=== PATIENT | female | born 1945 | race Caucasian/White ===

== ENCOUNTER 2016-03-27 12:09 | Outpatient (RCR) | payer MEDICARE, OTHER ==
[~2016-03-27 12:09] MED LIST: AMLO10TA82 PO; CHOL10002; E400C; ESTRADIOL; EZET1TAB21; FENO135C PO; FURO20TA4 PO; HCT25T; HYDR-2997 PO; KCL10CCR; LEVO125T6 PO; LISI20TA PO; LNS30CCR PO; LVT.1T; MONT10TA24 PO; NF-SITA50T PO; POTASSIUM CHLORIDE PO; SERT50TA PO; SERT50TA2
--- OUTSIDE RECORDS SUMMARY | 2016-03-27 12:13 | XMS REPORT | Continuity of Care Document ---
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 If you do not see the information that you expected, contact Release of Information in the Health Information Management department at [phone] for further assistance in locating additional records.[facility] Active Allergies and Adverse Reactions Allergen Noted Date Severity Reactions Comments Albuterol 12/25/2004 Allergy recorded in SMS: ALBUTEROL~Reactions: HIVES, Allergy recorded in SMS: PROVENTIL~Reactions: HIVES, Allergy recorded in SMS: VENTOLIN~Reactions: HIVES Current Medications Prescription Sig. Disp. Refills Start End Date Status Date Fenofibric Acid Take 135 mg by mouth Active (TRILIPIX) 135 mg PO CpDR daily. sertraline (ZOLOFT) 50 mg Take 50 mg by mouth Active PO tablet daily. sitaGLIPtin (JANUVIA) 50 Take 50 mg by mouth Active mg PO Tab daily. potassium chloride Take 20 mEq by mouth Active (KLOR-CON) 20 mEq PO daily. packet furosemide (LASIX) 20 mg Take 20 mg by mouth Active PO tablet daily. montelukast (SINGULAIR) Take 10 mg by mouth at Active 10 mg PO tablet bedtime daily. lansoprazole DR Take 30 mg by mouth Active (PREVACID) 30 mg PO daily. capsule ibuprofen (MOTRIN) 200 mg Take 200 mg by mouth as Active tablet Needed. Cholecalciferol (Vitamin Take by mouth. Active D3) (VITAMIN D) 1,000 unit cap CALCIUM PO Take 600 mg by mouth. Active levothyroxine (SYNTHROID) Take 25 mcg by mouth Active 25 mcg tablet daily 30 minutes before breakfast. Active Problems Problem Noted Date Tinnitus 01/17/2012 Thyroid cancer, medullary carcinoma (HCC) 01/11/2011 Personal history of irradiation 01/11/2011 Most Recent Encounters Date Type Specialty Providers Description 02/01/2016 Orders Only Otolaryngology Fabi Klein MD Personal history of irradiation (Primary Dx) 01/04/2016 Office Visit Otolaryngology Fabi Klein MD Personal history of irradiation (Primary Dx); Oropharyngeal dysphagia 01/04/2016 Clinical Otolaryngology Ling Serra, Oropharyngeal dysphagia Support VIDA,TED-CURRICULUM SPECIALIST (Primary Dx) 01/04/2016 Hospital Radiology Elliot Rene MD Encounter Social History Tobacco Use Types Packs/Day Years Used Date Never Smoker Smokeless Tobacco: Never Used Alcohol Use Drinks/Week oz/Week Comments No Last Filed Vital Signs Vital Sign Reading Time Taken Blood Pressure 134/60 01/04/2016 12:47 PM CDT Pulse 72 01/04/2016 12:47 PM CDT Temperature - - Respiratory Rate - - Height 1.651 m (5' 5") 01/04/2016 12:47 PM CDT Weight 72.031 kg (158 lb 12.8 01/04/2016 12:47 PM CDT oz) Body Mass Index 26.43 01/04/2016 12:47 PM CDT Oxygen Saturation - - Plan of Care Date Type Specialty Providers Description 05/10/2016 Appointment Otolaryngology Fabi Klein MD [address] [place] [address] [phone] (Fax) 05/10/2016 Appointment Otolaryngology Elliot Rene MD [address] [place] [address] [phone] (Fax) Health Maintenance Due Date Last Done Comments Physical (Comprehensive) 1950 Exam Pertussis Vaccine 1954 Tetanus Vaccine 1960 Breast Cancer Screening 1983 Colorectal Cancer 1993 Screening Shingles Vaccine 2003 Osteoporosis Screening 2008 Prevnar/Pneumovax (#1) 2008 Influenza Vaccine 12/29/2015 Results from Last 3 Months SWALLOW MOTION SERIES (01/04/2016 11:28 AM) Impressions 1. Mild laryngeal penetration with thin barium. 2. Mild oropharyngeal dysphagia. 3. Please see separately dictated report from the Department of Speech Pathology for further description. Approved by Geri Webster M.D. on 01/04/2016 3:41 PM By my electronic signature, I attest that I have personally reviewed the images for this examination and formulated the interpretations and opinions expressed in this report Finalized by Alex Tena M.D. on 01/04/2016 4:10 PM. Dictated by Geri Webster M.D. on 01/04/2016 11:50 AM. Narrative SWALLOW MOTION SERIES CLINICAL HISTORY: 70-year-old female, dysphagia, thyroid cancer, medullary carcinoma, personal history of radiation, medullary thyroid carcinoma TECHNIQUE: The procedure was performed in conjunction with members of the department of speech pathology. Video fluoroscopy was performed during swallowing of various consistencies of barium. The patient tolerated the procedure well and left the department in stable condition. TOTAL FLUOROSCOPY TIME: 186 seconds FINDINGS: Mild penetration was seen during swallow with thin barium. Spontaneous cough was absent. Procedure Note Interface, Radiant Results - SatJan 04, 2016 4:13 PM CDT SWALLOW MOTION SERIES CLINICAL HISTORY: 70-year-old female, dysphagia, thyroid cancer, medullary carcinoma, personal history of radiation, medullary thyroid carcinoma TECHNIQUE: The procedure was performed in conjunction with members of the department of speech pathology. Video fluoroscopy was performed during swallowing of various consistencies of barium. The patient tolerated the procedure well and left the department in stable condition. TOTAL FLUOROSCOPY TIME: 186 seconds FINDINGS: Mild penetration was seen during swallow with thin barium. Spontaneous cough was absent. IMPRESSION 1. Mild laryngeal penetration with thin barium. 2. Mild oropharyngeal dysphagia. 3. Please see separately dictated report from the Department of Speech Pathology for further description. Approved by Geri Webster M.D. on 01/04/2016 3:41 PM By my electronic signature, I attest that I have personally reviewed the images for this examination and formulated the interpretations and opinions expressed in this report Finalized by Alex Tena M.D. on 01/04/2016 4:10 PM. Dictated by Geri Webster M.D. on 01/04/2016 11:50 AM.
== END 2016-06-25 | disposition home or self-care (01) ==
LOC: ONC 12:09
PROVIDERS: ATTEND Internal Medicine Hematology & Oncology
DX: C73 Malignant neoplasm of thyroid gland (principal); E03.9 Hypothyroidism, unspecified; R13.10 Dysphagia, unspecified; Z92.3 Personal history of irradiation; Z79.899 Other long term (current) drug therapy
CPT/HCPCS: 36415; 84443

== ENCOUNTER 2016-09-13 10:35 | Outpatient (RCR) | payer MEDICARE, OTHER ==
[2016-08-09 13:21] LABS: BASOPHILS # (AUTO) 0.1 10^3/uL (0.0-0.1); BASOPHILS % (AUTO) 1 % (0-10); EOSINOPHILS # (AUTO) 0.1 10^3/uL (0.0-0.3); EOSINOPHILS % (AUTO) 2 % (0-10); LYMPHOCYTES % (AUTO) 19 % (12-44); MEAN CORPUSCULAR HEMOGLOBIN 28 PG (25-34); MEAN CORPUSCULAR HGB CONC 33 G/DL (32-36); MEAN CORPUSCULAR VOLUME 86 FL (80-99); MEAN PLATELET VOLUME 8.8 FL (7.4-10.4); MONOCYTES # (AUTO) 0.5 X 10^3 (0.0-1.0); MONOCYTES % (AUTO) 10 % (0-12); NEUTROPHILS # (AUTO) 3.5 X 10^3 (1.8-7.8); NEUTROPHILS % (AUTO) 67 % (42-75); PLATELET COUNT 290 10^3/uL (130-400); WHITE BLOOD COUNT 5.1 10^3/uL (4.3-11.0)
[2016-08-09 13:56] LABS: BILIRUBIN,TOTAL 0.7 MG/DL (0.1-1.0); CALCIUM 9.5 MG/DL (8.5-10.1); CREATININE SERUM 1.13 MG/DL (0.60-1.30); POTASSIUM 4.7 MMOL/L (3.6-5.0); TOTAL PROTEIN 6.9 G/DL (6.4-8.2)
[2016-08-09 14:20] LABS: THYROID STIMULATING HORMONE 40.16 UIU/ML (0.35-4.94)
[2016-10-20] MEDS ORDERED: AMLO5TAB4 PO (17:37)
[2016-10-20] MEDS ORDERED: HYDR-3812 PO (17:37)
== END 2016-11-07 | disposition home or self-care (01) ==
LOC: ONC 10:35
PROVIDERS: ATTEND Internal Medicine Hematology & Oncology
DX: C73 Malignant neoplasm of thyroid gland (principal); R97.0 Elevated carcinoembryonic antigen [CEA]; E03.9 Hypothyroidism, unspecified; R13.10 Dysphagia, unspecified; Z92.3 Personal history of irradiation; Z79.899 Other long term (current) drug therapy
CPT/HCPCS: 36415; 80053; 82308; 82378; 84443; 85025; 99213

== ENCOUNTER 2016-10-20 15:08 | Emergency (ER) | payer MEDICARE, OTHER ==
[~2016-10-20] VITALS: Ht 170.2 cm; Wt 74.9 kg
[2016-10-20 15:35] LABS: MEAN PLATELET VOLUME 9.1 FL (7.4-10.4); RED BLOOD COUNT 5.44 10^6/uL (4.35-5.85); RED CELL DISTRIBUTION WIDTH 13.7 % (10.0-14.5); WHITE BLOOD COUNT 6.3 10^3/uL (4.3-11.0)
[2016-10-20 15:52] LABS: ALANINE AMINOTRANSFERASE 16 U/L (0-55); ALBUMIN 4.3 GM/DL (3.2-4.5); ANION GAP 10 MMOL/L (5-14); ASPARTATE AMINO TRANSFERASE 25 U/L (5-34); BILIRUBIN,DIRECT 0.3 MG/DL (0.0-0.3); BILIRUBIN,INDIRECT 0.7 MG/DL; BLOOD UREA NITROGEN 13 MG/DL (7-18); BUN/CREATININE RATIO 14 (0-20); CALCIUM 9.5 MG/DL (8.5-10.1); CARBON DIOXIDE 24 MMOL/L (21-32); CHLORIDE 107 MMOL/L (98-107); CREATININE SERUM 0.92 MG/DL (0.60-1.30); GFR ESTIMATED 60; GLUCOSE 135 MG/DL (70-105); HEMOLYSIS 9 (-100-29); ICTERUS 1.1 (-100-1.9); LIPEMIA 8 (-100-49); POTASSIUM 3.9 MMOL/L (3.6-5.0); SODIUM 141 MMOL/L (135-145); TOTAL PROTEIN 7.8 GM/DL (6.4-8.2)
[2016-10-20] MEDS ORDERED: NS 100 ML (IVPB) BAG IV ONE (16:00)
[2016-10-20] MEDS ORDERED: IOHEXOL 350 MG/ML 100 ML (OMNIPAQUE 350) VIAL IV ONE (16:00)
[2016-10-20 16:07] LABS: ALCOHOL < 10 MG/DL (<10)
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
[2016-10-20] MEDS ORDERED: KETOROLAC 30 MG/ML VIAL IVP ONE (16:45)
[2016-10-20] MEDS ORDERED: fentaNYL INJECTION 100 MCG/2 ML AMP IVP ONE (16:45)
[2016-10-20 16:53] LABS: BILIRUBIN,URINE NEGATIVE (NEGATIVE); KETONES,URINE NEGATIVE (NEGATIVE); LEUKOCYTE ESTERASE ,URINE NEGATIVE (NEGATIVE); NITRITE,URINE NEGATIVE (NEGATIVE); PH,URINE 7 (5-9); PROTEIN,URINE NEGATIVE (NEGATIVE); UROBILINOGEN,URINE NORMAL (NORMAL)
[2016-10-20 16:59] LABS: SQUAMOUS EPITHELIAL CELL,UR 0-2 /HPF
[2016-10-20 17:21] LABS: THYROID STIMULATING HORMONE 14.14 UIU/ML (0.35-4.94)
[2016-10-20] MEDS ORDERED: AMLO5TAB4 PO (17:37)
[2016-10-20] MEDS ORDERED: HYDR-3812 PO (17:37)
[2016-10-20] MEDS ORDERED: ONDANSETRON 4 MG/2 ML (SDV) Z0FRAN IVP ONE (17:45)
[2016-10-20] MEDS ORDERED: amLODIPine 5 MG (NORVASC) TAB PO ONE (17:45)
[2016-10-20 18:25] VITALS: BP 168/100
--- OUTSIDE RECORDS SUMMARY | 2016-10-22 17:12 | XMS REPORT | Continuity of Care Document ---
Author Author [facility] Organization [facility] Address Unknown Phone Unavailable Care Team Providers Care Convenience Store Manager Name Role Phone Carlos Cervantes III PCP [phone] Source Comments Some departments are not documenting in the electronic medical record. If you do not see the information that you expected, contact Release of Information in the Health Information Management department at [phone] for further assistance in locating additional records.[facility] Active Allergies and Adverse Reactions Allergen Noted [...] (HCC) 01/11/2011 Personal history of irradiation 01/11/2011 Social History Tobacco Use Types Packs/Day Years [...] Oxygen Saturation - - Plan of Care Health Maintenance Due Date Last Done Comments Physical (Comprehensive) 1950 Exam Pertussis Vaccine 1954 Tetanus Vaccine 1960 Breast Cancer Screening 1983 Colorectal Cancer 1993 Screening Shingles Vaccine 2003 Osteoporosis Screening 2008 Prevnar/Pneumovax (#1) 2008 Influenza Vaccine 12/28/2016 Results from Last 3 Months Not on file
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
== END 2016-10-20 18:25 | disposition home or self-care (01) ==
LOC: EDUNIT# 15:08 → ER 15:11
DX: S20.212A Contusion of left front wall of thorax, initial encounter (principal); S89.92XA Unspecified injury of left lower leg, initial encounter; S49.92XA Unspecified injury of left shoulder and upper arm, initial encounter; I16.0 Hypertensive urgency; E89.0 Postprocedural hypothyroidism; M50.30 Other cervical disc degeneration, unspecified cervical region; M48.02 Spinal stenosis, cervical region; Z85.850 Personal history of malignant neoplasm of thyroid; Z92.3 Personal history of irradiation; W22.11XA Striking against or struck by driver side automobile airbag, initial encounter; V43.52XA Car driver injured in collision with other type car in traffic accident, initial encounter; Y92.009 Unspecified place in unspecified non-institutional (private) residence as the place of occurrence of the external cause; Y99.8 Other external cause status
CPT/HCPCS: 36415; 70450; 71260; 72125; 74177; 80048; 80076; 80320; 81000; 84439; 84443; 85027; 93041

== ENCOUNTER 2017-01-23 10:12 | Outpatient (RCR) | payer MEDICARE, OTHER ==
[2016-11-08 13:12] LABS: BASOPHILS # (AUTO) 0.1 10^3/uL (0.0-0.1); BASOPHILS % (AUTO) 1 % (0-10); EOSINOPHILS # (AUTO) 0.1 10^3/uL (0.0-0.3); EOSINOPHILS % (AUTO) 3 % (0-10); LYMPHOCYTES # (AUTO) 0.9 X 10^3 (1.0-4.0); LYMPHOCYTES % (AUTO) 18 % (12-44); MEAN CORPUSCULAR HEMOGLOBIN 28 PG (25-34); MEAN CORPUSCULAR HGB CONC 33 G/DL (32-36); MEAN CORPUSCULAR VOLUME 86 FL (80-99); MONOCYTES # (AUTO) 0.5 X 10^3 (0.0-1.0); MONOCYTES % (AUTO) 11 % (0-12); NEUTROPHILS # (AUTO) 3.3 X 10^3 (1.8-7.8); NEUTROPHILS % (AUTO) 68 % (42-75); PLATELET COUNT 305 10^3/uL (130-400); RED BLOOD COUNT 5.27 10^6/uL (4.35-5.85); RED CELL DISTRIBUTION WIDTH 13.7 % (10.0-14.5); WHITE BLOOD COUNT 4.8 10^3/uL (4.3-11.0)
[2016-11-08 13:56] LABS: ALANINE AMINOTRANSFERASE 15 U/L (0-55); ANION GAP 10 MMOL/L (5-14); ASPARTATE AMINO TRANSFERASE 18 U/L (5-34); BILIRUBIN,TOTAL 0.6 MG/DL (0.1-1.0); BLOOD UREA NITROGEN 11 MG/DL (7-18); BUN/CREATININE RATIO 13; CALCIUM 9.3 MG/DL (8.5-10.1); CARBON DIOXIDE 26 MMOL/L (21-32); CHLORIDE 105 MMOL/L (98-107); CREATININE SERUM 0.84 MG/DL (0.60-1.30); GFR ESTIMATED > 60; GLUCOSE 111 MG/DL (70-105); POTASSIUM 4.3 MMOL/L (3.6-5.0); SODIUM 141 MMOL/L (135-145); TOTAL PROTEIN 7.2 GM/DL (6.4-8.2)
[2016-11-08 14:16] LABS: THYROID STIMULATING HORMONE 9.96 UIU/ML (0.35-4.94)
[~2017-01-23 10:12] MED LIST changes: +AMLO5TAB4 PO; +HYDR-3812 PO
== END 2017-01-26 | disposition home or self-care (01) ==
LOC: ONC 10:12
PROVIDERS: ATTEND Internal Medicine Hematology & Oncology
DX: C73 Malignant neoplasm of thyroid gland (principal); R97.0 Elevated carcinoembryonic antigen [CEA]; E03.9 Hypothyroidism, unspecified; R13.10 Dysphagia, unspecified; Z92.3 Personal history of irradiation; Z79.899 Other long term (current) drug therapy
CPT/HCPCS: 36415; 80053; 82308; 82378; 84443; 85025; 99213

== ENCOUNTER 2017-01-25 10:06 | Outpatient (RCR) | payer MEDICARE, OTHER | END 2017-01-26 | disposition home or self-care (01) | PROVIDERS: ATTEND Internal Medicine | DX: S23.3XXD Sprain of ligaments of thoracic spine, subsequent encounter (principal); V87.7XXD Person injured in collision between other specified motor vehicles (traffic), subsequent encounter ==

== ENCOUNTER 2017-01-31 10:42 | Outpatient (RCR) | payer MEDICARE, OTHER | END 2017-01-31 11:25 | disposition home or self-care (01) | PROVIDERS: ATTEND Internal Medicine | DX: S23.3XXD Sprain of ligaments of thoracic spine, subsequent encounter (principal); V87.7XXD Person injured in collision between other specified motor vehicles (traffic), subsequent encounter ==

== ENCOUNTER → 2017-03-06 | Outpatient (CLI) | payer MEDICARE, OTHER | LOC: WOUNDCARE 13:13 | PROVIDERS: ATTEND Surgery | DX: M27.2 Inflammatory conditions of jaws (principal); C73 Malignant neoplasm of thyroid gland; M86.8X8 Other osteomyelitis, other site; Z92.3 Personal history of irradiation | CPT/HCPCS: 99213 ==

== ENCOUNTER → 2017-03-11 | Outpatient (CLI) | payer MEDICARE, OTHER | LOC: WOUNDCARE 08:19 | PROVIDERS: ATTEND Surgery | DX: M27.2 Inflammatory conditions of jaws (principal); C73 Malignant neoplasm of thyroid gland; M86.8X8 Other osteomyelitis, other site; Z92.3 Personal history of irradiation | CPT/HCPCS: 99212 ==

== ENCOUNTER → 2017-03-20 | Outpatient (CLI) | payer MEDICARE, OTHER | LOC: WOUNDCARE 13:25 | PROVIDERS: ATTEND Surgery | DX: M86.8X8 Other osteomyelitis, other site (principal); M27.2 Inflammatory conditions of jaws; C73 Malignant neoplasm of thyroid gland; Z92.3 Personal history of irradiation | CPT/HCPCS: 99212 ==

== ENCOUNTER 2017-04-17 12:49 | Outpatient (RCR) | payer MEDICARE, OTHER ==
[~2017-04-17 12:49] MED LIST changes: +ACHD5005 PO; -HYDR-3812 PO
[2017-06-04] MEDS ORDERED: SERT50TA9 PO (15:27)
[2017-06-04] MEDS ORDERED: LOSA50TA36 PO (15:27)
[2017-06-04] MEDS ORDERED: LEVO112T55 PO (15:27)
[2017-06-04] MEDS ORDERED: MONT10TA24 PO (15:27)
[2017-06-04] MEDS ORDERED: FENO134C PO (15:27)
[2017-06-04] MEDS ORDERED: SITA50TA PO (15:27)
[2017-06-04] MEDS ORDERED: FURO20TA4 PO (15:27)
== END 2017-06-03 | disposition home or self-care (01) ==
LOC: ONC 12:49
PROVIDERS: ATTEND Internal Medicine Hematology & Oncology
DX: C73 Malignant neoplasm of thyroid gland (principal); R97.0 Elevated carcinoembryonic antigen [CEA]; E03.9 Hypothyroidism, unspecified; R13.10 Dysphagia, unspecified; Z92.3 Personal history of irradiation; Z79.899 Other long term (current) drug therapy
CPT/HCPCS: 36415; 84443

== ENCOUNTER 2017-06-04 11:00 | Outpatient (CLI) | payer MEDICARE, OTHER ==
[~2017-06-04] VITALS: Ht 170.2 cm; Wt 74.8 kg
[2017-06-04] MEDS ORDERED: FURO20TA4 PO (15:27)
[2017-06-04] MEDS ORDERED: LEVO112T55 PO (15:27)
[2017-06-04] MEDS ORDERED: LOSA50TA36 PO (15:27)
[2017-06-04] MEDS ORDERED: FENO134C PO (15:27)
[2017-06-04] MEDS ORDERED: SERT50TA9 PO (15:27)
[2017-06-04] MEDS ORDERED: MONT10TA24 PO (15:27)
[2017-06-04] MEDS ORDERED: SITA50TA PO (15:27)
== END 2017-06-04 15:29 ==
LOC: PREOP 11:00
PROVIDERS: ATTEND Specialist
DX: Z01.818 Encounter for other preprocedural examination (principal); K04.7 Periapical abscess without sinus; K03.81 Cracked tooth; C73 Malignant neoplasm of thyroid gland; Z92.3 Personal history of irradiation

== ENCOUNTER 2017-12-16 15:48 | Outpatient (CLI) | payer MEDICARE, OTHER ==
[~2017-12-16] VITALS: Ht 170.2 cm; Wt 74.8 kg
[~2017-12-16 15:48] MED LIST changes: +FENO134C PO; +LEVO112T55 PO; +LOSA50TA36 PO; +SERT50TA9 PO; +SITA50TA PO
== END 2017-12-16 15:53 | disposition home or self-care (01) ==
LOC: PREOP 15:48
PROVIDERS: ATTEND Surgery
DX: Z01.818 Encounter for other preprocedural examination (principal)

== ENCOUNTER 2018-01-03 15:05 | Outpatient (RCR) | payer MEDICARE, OTHER ==
[2017-10-31 15:09] LABS: BASOPHILS # (AUTO) 0.1 10^3/uL (0.0-0.1); BASOPHILS % (AUTO) 2 % (0-10); EOSINOPHILS # (AUTO) 0.1 10^3/uL (0.0-0.3); EOSINOPHILS % (AUTO) 2 % (0-10); HEMATOCRIT 40 % (35-52); HEMOGLOBIN 13.4 G/DL (11.5-16.0); LYMPHOCYTES # (AUTO) 0.8 X 10^3 (1.0-4.0); LYMPHOCYTES % (AUTO) 20 % (12-44); MEAN CORPUSCULAR HEMOGLOBIN 29 PG (25-34); MEAN CORPUSCULAR HGB CONC 34 G/DL (32-36); MEAN CORPUSCULAR VOLUME 85 FL (80-99); MEAN PLATELET VOLUME 9.4 FL (7.4-10.4); MONOCYTES # (AUTO) 0.4 X 10^3 (0.0-1.0); MONOCYTES % (AUTO) 10 % (0-12); NEUTROPHILS # (AUTO) 2.8 X 10^3 (1.8-7.8); NEUTROPHILS % (AUTO) 67 % (42-75); PLATELET COUNT 255 10^3/uL (130-400); RED BLOOD COUNT 4.71 10^6/uL (4.35-5.85); RED CELL DISTRIBUTION WIDTH 13.5 % (10.0-14.5); WHITE BLOOD COUNT 4.2 10^3/uL (4.3-11.0)
[2017-10-31 15:39] LABS: ALBUMIN 4.1 GM/DL (3.2-4.5); BILIRUBIN,TOTAL 0.7 MG/DL (0.1-1.0); CALCIUM 9.4 MG/DL (8.5-10.1); CREATININE SERUM 1.01 MG/DL (0.60-1.30); POTASSIUM 4.2 MMOL/L (3.6-5.0); TOTAL PROTEIN 6.3 GM/DL (6.4-8.2)
[2018-01-01 10:09] LABS: BASOPHILS # (AUTO) 0.1 10^3/uL (0.0-0.1); BASOPHILS % (AUTO) 1 % (0-10); EOSINOPHILS # (AUTO) 0.2 10^3/uL (0.0-0.3); EOSINOPHILS % (AUTO) 2 % (0-10); HEMATOCRIT 40 % (35-52); HEMOGLOBIN 13.1 G/DL (11.5-16.0); LYMPHOCYTES # (AUTO) 0.8 X 10^3 (1.0-4.0); LYMPHOCYTES % (AUTO) 11 % (12-44); MEAN CORPUSCULAR HEMOGLOBIN 28 PG (25-34); MEAN CORPUSCULAR HGB CONC 33 G/DL (32-36); MEAN CORPUSCULAR VOLUME 84 FL (80-99); MONOCYTES # (AUTO) 0.9 X 10^3 (0.0-1.0); MONOCYTES % (AUTO) 13 % (0-12); NEUTROPHILS # (AUTO) 5.1 X 10^3 (1.8-7.8); NEUTROPHILS % (AUTO) 73 % (42-75); PLATELET COUNT 297 10^3/uL (130-400); RED BLOOD COUNT 4.77 10^6/uL (4.35-5.85); RED CELL DISTRIBUTION WIDTH 13.6 % (10.0-14.5)
[2018-01-01 10:32] LABS: ALANINE AMINOTRANSFERASE 14 U/L (0-55); ALBUMIN 3.8 GM/DL (3.2-4.5); ALKALINE PHOSPHATASE 79 U/L (40-136); BILIRUBIN,TOTAL 0.7 MG/DL (0.1-1.0); BUN/CREATININE RATIO 10; CALCIUM 9.6 MG/DL (8.5-10.1); CARBON DIOXIDE 26 MMOL/L (21-32); CHLORIDE 104 MMOL/L (98-107); CREATININE SERUM 0.78 MG/DL (0.60-1.30); GFR ESTIMATED > 60; GLUCOSE 116 MG/DL (70-105); POTASSIUM 3.7 MMOL/L (3.6-5.0); SODIUM 139 MMOL/L (135-145); TOTAL PROTEIN 6.6 GM/DL (6.4-8.2)
[~2018-01-03 15:05] MED LIST changes: +FENO135C4 PO; +FLUC100T PO; +LANS30CA PO; +LEVO125T PO; -LOSA50TA36 PO; +LOSA50TA7 PO
== END 2018-01-07 09:41 | disposition home or self-care (01) ==
LOC: ONC 15:05
PROVIDERS: ATTEND Internal Medicine Hematology & Oncology
DX: C73 Malignant neoplasm of thyroid gland (principal); R97.0 Elevated carcinoembryonic antigen [CEA]; E03.9 Hypothyroidism, unspecified; R13.10 Dysphagia, unspecified; Z92.3 Personal history of irradiation; Z79.899 Other long term (current) drug therapy
CPT/HCPCS: 36415; 80053; 82308; 82378; 83497; 84443; 85025; 86316; 99213

== ENCOUNTER 2018-01-16 13:47 | Outpatient (RCR) | payer MEDICARE, OTHER | END 2018-01-26 | disposition home or self-care (01) | LOC: ONC 13:47 | PROVIDERS: ATTEND Internal Medicine Hematology & Oncology | DX: C73 Malignant neoplasm of thyroid gland (principal); R97.0 Elevated carcinoembryonic antigen [CEA]; E03.9 Hypothyroidism, unspecified; R13.10 Dysphagia, unspecified; Z92.3 Personal history of irradiation; Z79.899 Other long term (current) drug therapy ==

== ENCOUNTER 2018-01-29 06:41 | Outpatient (CLI) | payer MEDICARE, OTHER ==
[~2018-01-29] VITALS: Ht 170.2 cm; Wt 56.2 kg
[2018-01-29] MEDS ORDERED: AMLO5TAB7 PO (15:01)
== END 2018-01-29 15:04 | disposition home or self-care (01) ==
LOC: PREOP 06:41
PROVIDERS: ATTEND Surgery
DX: Z01.818 Encounter for other preprocedural examination (principal)

== ENCOUNTER 2018-02-03 10:04 | Day surgery (SDC) | payer MEDICARE, OTHER ==
[~2018-02-03] VITALS: Ht 170.2 cm; Wt 56.2 kg
[~2018-02-03 10:04] MED LIST changes: +AMLO5TAB7 PO
--- OUTSIDE RECORDS SUMMARY | 2018-02-03 10:08 | XMS REPORT | Clinical Summary ---
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 If you do not see the information that you expected, contact Release of Information in the Health Information Management department at [phone] for further assistance in locating additional records.[facility] Allergies Active Allergy Reactions Severity Noted Date Comments Albuterol 12/25/2004 Allergy recorded in SMS: [...] (HCC) 01/11/2011 Personal history of irradiation 01/11/2011 Family History Relation Name Status Comments Brother Alive Brother Alive Daughter Alive Daughter Alive Father Mother Sister Alive Son Alive Social History Tobacco Use Types Packs/Day Years Used Date Never Smoker Smokeless Tobacco: Never Used Alcohol Use Drinks/Week oz/Week Comments No Sex Assigned at Date Recorded Not on file Last Filed Vital Signs Vital Sign Reading Time Taken Blood Pressure 134/60 01/04/2016 12:47 PM CDT Pulse 72 01/04/2016 12:47 PM CDT Temperature - - Respiratory Rate - - Oxygen Saturation - - Inhaled Oxygen - - Concentration Weight 72 kg (158 lb 12.8 oz) 01/04/2016 12:47 PM CDT Height 165.1 cm (5' 5") 01/04/2016 12:47 PM CDT Body Mass Index 26.43 01/04/2016 12:47 PM CDT Plan of Treatment Health Maintenance Due Date Last Done Comments PHYSICAL (COMPREHENSIVE) 1950 EXAM PERTUSSIS VACCINE 1954 TETANUS VACCINE 1960 BREAST CANCER SCREENING 1983 COLORECTAL CANCER 1993 SCREENING SHINGLES RECOMBINANT 1993 VACCINE (1 of 2) OSTEOPOROSIS SCREENING 2008 PNEUMONIA (PCV13/PPSV23) 2008 VACCINES (1 of 2 - PCV13) INFLUENZA VACCINE 11/27/2017 Results Not on filefrom Last 3 Months
[2018-02-03] MEDS ORDERED: NS IV 500 ML 500 ML IV PRN (10:11)
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
[2018-02-03] MEDS ORDERED: HURRICAINE EXT TUBE (BENZOCAINE) XX PRN (10:15)
[2018-02-03] MEDS ORDERED: MIDAZOLAM 2 MG/2 ML (VERSED) VIAL IVP ONE (10:15)
[2018-02-03] MEDS ORDERED: fentaNYL INJECTION 100 MCG/2 ML AMP IVP ONE (10:15)
[2018-02-03] MEDS ORDERED: NS IV 500 ML 500 ML ONE (10:22)
[2018-02-03 10:25] VITALS: BP 112/68
[2018-02-03] MEDS ORDERED: MIDAZOLAM 2 MG/2 ML (VERSED) VIAL ONE ×2 (12:27)
[2018-02-03] MEDS ORDERED: HURRICAINE EXT TUBE (BENZOCAINE) ONE (12:28)
[2018-02-03] MEDS ORDERED: fentaNYL INJECTION 100 MCG/2 ML AMP ONE (12:28)
--- NOTE | 2018-02-03 12:34 | History & Physicial ---
History of Present Illness History of Present Illness Reason for visit/HPI to undergo an upper endoscopy to investigate new onset of melena and epigastric pain. Date of Admission 02/03/18 Date Seen by a Provider: Feb 03, 2018 Time Seen by a Provider: 12:33 I consulted on this patient on 02/03/18 12:32 Attending Physician Filemon Stinson MD Admitting Physician Carlos Cervantes DO Consult Allergies and Home Medications Allergies Coded Allergies: albuterol (Verified Allergy, Mild, HIVES, 12/20/17) Home Medications Amlodipine Besylate 5 Mg Tablet, 5 MG PO DAILY, (Reported) Fenofibric Acid (Choline) 135 Mg Capsule.dr, 135 MG PO DAILY, (Reported) Furosemide 20 Mg Tablet, 20 MG PO DAILY, (Reported) Lansoprazole 30 Mg Capsule.dr, 30 MG PO DAILY, (Reported) Levothyroxine Sodium 112 Mcg Tablet, 112 MCG PO MoWeFr, (Reported) Levothyroxine Sodium 125 Mcg Tablet, 125 MCG PO SuTuThSa, (Reported) Losartan Potassium 50 Mg Tablet, 50 MG PO DAILY, (Reported) Montelukast Sodium 10 Mg Tablet, 10 MG PO DAILY, (Reported) Sertraline HCl 50 Mg Tablet, 50 MG PO DAILY, (Reported) Sitagliptin Phosphate 50 Mg Tablet, 50 MG PO DAILY, (Reported) Patient Home Medication List Home Medication List Reviewed: Yes Past Liifolz-Ctpcrt-Nfjxvc Hx Patient Social History Marrital Status: Employed/Student: retired Alcohol Use: Denies Use Recreational Drug Use: No Smoking Status: Never a Smoker 2nd Hand Smoke Exposure: No Recent Foreign Travel: No Contact w/other who traveled: No Recent Hopitalizations: No Recent Infectious Disease Expo: No Immunizations Up To Date Pediatric: No Date of Influenza Vaccine: Jan 27, 2017 Seasonal Allergies Seasonal Allergies: No Surgeries Yes (hemorrhoidectomy, knee scope) Gallbladder, Hysterectomy, Thyroidectomy Respiratory No (scar tissue from thyroid ca radition) Cardiovascular No Chronic Edema/Swelling, Hypertension Neurological No Reproductive System Hx Reproductive Disorders: No Sexually Transmitted Disease: No HIV/AIDS: No 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 Genitourinary No Gastrointestinal Yes Gastroesophageal Reflux, Chronic Diarrhea Musculoskeletal Yes Arthritis, Chronic Back Pain Endocrine History of Endocrine Disorders: Yes (THYROIDECTOMY) Cancer Yes Thyroid Type of Treatment: Radiation, Surgical Intervention Psychosocial History of Psychiatric Problem: No Integumentary History of Skin or Integumenta: No Blood Transfusions History of Blood Disorders: No Adverse Reaction to a Blood Tr: No (N/A) Review of Systems Constitutional: weakness Respiratory: no symptoms reported Cardiovascular: no symptoms reported Gastrointestinal: see HPI Genitourinary: no symptoms reported Musculoskeletal: joint pain Psychiatric/Neurological: No Symptoms Reported Physical Exam Vital Signs Vital Signs - First Documented 02/03/18 10:25 Temp 97.1 Pulse 80 Resp 18 B/P (MAP) 112/68 (83) Pulse Ox 95 O2 Delivery Room Air Capillary Refill : Height, Weight, BMI Height: 5'7.00" Weight: 124lbs. 0.0oz. 56.378164bc; 19.4 BMI Method:Stated General Appearance: Anxious Neck: Normal Inspection Respiratory: Lungs Clear Cardiovascular: Regular Rate, Rhythm Gastrointestinal: Non Tender, Soft Neurologic/Psychiatric: Alert, Oriented x3 Skin: Warm/Dry Assessment/Plan Assessment and Plan lady with epigastric pain and 1 episode of melena. Upper GI source of blood loss to be ruled out and therefore EGD would be reasonable. Admission Diagnosis Admission Status: Other (Outpt Proc) FIELMON STINSON MD Feb 03, 2018 12:34
--- NOTE | 2018-02-03 12:35 | Conscious Sedation/ASA ---
Conscious Sedation Pre-Proced Time 12:34 ASA Score 1 For ASA 3 and 4: Consider anesthesia and medical clearance. Also, for patients with a history of failed moderate sedation consider anesthesia. Airway Lungs Heart ASA score ASA 1: a normal healthy patient ASA 2: a patient with a mild systemic disease (mid diabetes, controlled hypertension, obesity ASA 3: a patient with a severe systemic disease that limits activity (angina , COPD, prior Myocardial infarction) ASA 4: a patient with an incapacitating disease that is a constant threat to life (CHF, renal failure) ASA 5: a moribund patient not expected to survive 24 hrs. (ruptured aneurysm) ASA 6: a declared brain patient whose organs are being harvested. For emergent operations, add the letter E after the classification Mallampati Classification Grade 1 Sedation Plan Discussed options with patient/fam The patient is an appropriate candidate to undergo the planned procedure, sedation, and anesthesia. The patient immediately re-assessed prior to indication. FILEMON STINSON MD Feb 03, 2018 12:35
--- NOTE | 2018-02-03 12:53 | Endo Procedure Record ---
Endo Procedure Report Date of Procedure Last Colonoscopy: Yes (12/19/17) Feb 03, 2018 Surgeon (s) FILEMON STINSON MD Post Procedure/Op Diagnosis 1.1 mm AV malformation without any bleeding at the distal stomach 2. Multiple gastric polyps from 2-3 mm along the proximal body Procedure Performed EGD with snare polypectomy Description of Procedure Anesthesia Type: Conscious Sedation Specimen(s) collected/removed gastric polyps Description of the Procedure indication for the procedure: This lady reported epigastric pain and 1 episode of melena. Therefore, it is felt reasonable to perform an upper endoscopy. Informed consent was obtained after reviewing the procedure in detail. Description of the procedure: She was placed in left lateral decubitus position and her vital signs were monitored. Conscious sedation was achieved using Versed and fentanyl. The flexible gastroscope was then introduced down the esophagus, past the stomach, into the proximal duodenum. Findings: Esophagus: Normal. Stomach: 1. 1 mm, nonbleeding AV malformation at the distal stomach. Photo documentation was obtained 2. Multiple polyps varying in diameter from 2-3 mm across the proximal stomach. Some of these were snared and retrieved. Duodenum: Normal. She tolerated the procedure well and was taken back to the nursing area in a stable condition. Impression: Epigastric pain and melena. Incidental, nonbleeding AV malformation. Will observe. FILEMON STINSON MD Feb 03, 2018 12:53
--- NOTE | 2018-02-03 12:57 | Discharge Inst-Simple/Standard ---
Discharge Inst-Standard Discharge Medications New, Converted or Re-Newed RX: RX on Chart Patient Instructions/Follow Up Plan of Care/Instructions/FU: we will call once pathology reports from the polyps become available Activity as Tolerated: Yes Discharge Diet: No Restrictions FILEMON STINSON MD Feb 03, 2018 12:57
[2018-02-03 13:10] VITALS: BP 139/64
[2018-02-03 13:40] VITALS: BP 189/87
== END 2018-02-03 14:15 | disposition home or self-care (01) ==
LOC: ENDO 10:04
PROVIDERS: ATTEND Surgery
DX: K31.7 Polyp of stomach and duodenum (principal); Q27.32 Arteriovenous malformation of vessel of lower limb; K21.9 Gastro-esophageal reflux disease without esophagitis; K52.9 Noninfective gastroenteritis and colitis, unspecified; Z85.850 Personal history of malignant neoplasm of thyroid; Z92.3 Personal history of irradiation; Z79.899 Other long term (current) drug therapy
CPT/HCPCS: 88305

== ENCOUNTER 2018-04-02 13:31 | Outpatient (RCR) | payer MEDICARE, OTHER | END 2018-04-28 15:25 | disposition home or self-care (01) | PROVIDERS: ATTEND Internal Medicine | DX: R53.1 Weakness (principal) ==

== ENCOUNTER 2018-06-23 15:30 | Outpatient (RCR) | payer MEDICARE, OTHER ==
[2018-04-17 13:14] LABS: BASOPHILS % (AUTO) 1 % (0-10); EOSINOPHILS # (AUTO) 0.1 10^3/uL (0.0-0.3); EOSINOPHILS % (AUTO) 2 % (0-10); HEMATOCRIT 39 % (35-52); HEMOGLOBIN 12.8 G/DL (11.5-16.0); LYMPHOCYTES % (AUTO) 25 % (12-44); MEAN CORPUSCULAR HEMOGLOBIN 27 PG (25-34); MEAN CORPUSCULAR HGB CONC 33 G/DL (32-36); MEAN CORPUSCULAR VOLUME 83 FL (80-99); MEAN PLATELET VOLUME 9.6 FL (7.4-10.4); MONOCYTES # (AUTO) 0.4 X 10^3 (0.0-1.0); MONOCYTES % (AUTO) 11 % (0-12); NEUTROPHILS # (AUTO) 2.3 X 10^3 (1.8-7.8); NEUTROPHILS % (AUTO) 61 % (42-75); PLATELET COUNT 230 10^3/uL (130-400); RED CELL DISTRIBUTION WIDTH 14.1 % (10.0-14.5); WHITE BLOOD COUNT 3.8 10^3/uL (4.3-11.0)
[2018-04-17 13:33] LABS: ALANINE AMINOTRANSFERASE 23 U/L (0-55); ALKALINE PHOSPHATASE 91 U/L (40-136); BILIRUBIN,TOTAL 0.7 MG/DL (0.1-1.0); BUN/CREATININE RATIO 19; CALCIUM 9.4 MG/DL (8.5-10.1); CARBON DIOXIDE 25 MMOL/L (21-32); CHLORIDE 107 MMOL/L (98-107); CREATININE SERUM 0.86 MG/DL (0.60-1.30); GFR ESTIMATED > 60; GLUCOSE 113 MG/DL (70-105); POTASSIUM 3.6 MMOL/L (3.6-5.0); SODIUM 142 MMOL/L (135-145); TOTAL PROTEIN 6.8 GM/DL (6.4-8.2)
[~2018-06-23 15:30] MED LIST changes: -AMLO5TAB7 PO; +AMLO5TAB9 PO; +LOSA50TA63 PO; -LOSA50TA7 PO
== END 2018-06-29 | disposition home or self-care (01) ==
LOC: ONC 15:30
PROVIDERS: ATTEND Internal Medicine Hematology & Oncology
DX: C73 Malignant neoplasm of thyroid gland (principal); R97.0 Elevated carcinoembryonic antigen [CEA]; E03.9 Hypothyroidism, unspecified; R13.10 Dysphagia, unspecified; Z92.3 Personal history of irradiation; Z79.899 Other long term (current) drug therapy
CPT/HCPCS: 36415; 80053; 82308; 82378; 83497; 83615; 84436; 84443; 85025; 86316; 99213

== ENCOUNTER 2018-10-23 10:25 | Outpatient (RCR) | payer MEDICARE, OTHER ==
[2018-07-31 13:56] LABS: BASOPHILS % (AUTO) 1 % (0-10); EOSINOPHILS # (AUTO) 0.1 10^3/uL (0.0-0.3); EOSINOPHILS % (AUTO) 1 % (0-10); HEMATOCRIT 40 % (35-52); HEMOGLOBIN 13.2 G/DL (11.5-16.0); LYMPHOCYTES # (AUTO) 0.7 X 10^3 (1.0-4.0); LYMPHOCYTES % (AUTO) 16 % (12-44); MEAN CORPUSCULAR HEMOGLOBIN 28 PG (25-34); MEAN CORPUSCULAR HGB CONC 33 G/DL (32-36); MEAN CORPUSCULAR VOLUME 83 FL (80-99); MEAN PLATELET VOLUME 9.1 FL (7.4-10.4); MONOCYTES # (AUTO) 0.4 X 10^3 (0.0-1.0); MONOCYTES % (AUTO) 10 % (0-12); NEUTROPHILS % (AUTO) 72 % (42-75); PLATELET COUNT 265 10^3/uL (130-400); RED CELL DISTRIBUTION WIDTH 13.7 % (10.0-14.5); WHITE BLOOD COUNT 4.1 10^3/uL (4.3-11.0)
[2018-07-31 14:16] LABS: ALANINE AMINOTRANSFERASE 16 U/L (0-55); ALBUMIN 4.2 GM/DL (3.2-4.5); ALKALINE PHOSPHATASE 77 U/L (40-136); BILIRUBIN,TOTAL 0.8 MG/DL (0.1-1.0); BUN/CREATININE RATIO 17; CARBON DIOXIDE 28 MMOL/L (21-32); CHLORIDE 105 MMOL/L (98-107); CREATININE SERUM 0.83 MG/DL (0.60-1.30); GFR ESTIMATED > 60; GLUCOSE 114 MG/DL (70-105); POTASSIUM 3.9 MMOL/L (3.6-5.0); SODIUM 140 MMOL/L (135-145); TOTAL PROTEIN 6.9 GM/DL (6.4-8.2)
[2018-10-23 11:00] LABS: BASOPHILS % (AUTO) 1 % (0-10); EOSINOPHILS # (AUTO) 0.1 10^3/uL (0.0-0.3); EOSINOPHILS % (AUTO) 3 % (0-10); HEMATOCRIT 40 % (35-52); HEMOGLOBIN 13.3 G/DL (11.5-16.0); LYMPHOCYTES # (AUTO) 0.7 X 10^3 (1.0-4.0); LYMPHOCYTES % (AUTO) 20 % (12-44); MEAN CORPUSCULAR HEMOGLOBIN 28 PG (25-34); MEAN CORPUSCULAR HGB CONC 33 G/DL (32-36); MEAN CORPUSCULAR VOLUME 84 FL (80-99); MEAN PLATELET VOLUME 9.5 FL (7.4-10.4); MONOCYTES # (AUTO) 0.5 X 10^3 (0.0-1.0); MONOCYTES % (AUTO) 12 % (0-12); NEUTROPHILS # (AUTO) 2.5 X 10^3 (1.8-7.8); NEUTROPHILS % (AUTO) 65 % (42-75); PLATELET COUNT 241 10^3/uL (130-400); RED CELL DISTRIBUTION WIDTH 13.1 % (10.0-14.5); WHITE BLOOD COUNT 3.8 10^3/uL (4.3-11.0)
[2018-10-23 11:21] LABS: ALBUMIN 4.2 GM/DL (3.2-4.5); BILIRUBIN,TOTAL 0.7 MG/DL (0.1-1.0); CALCIUM 9.7 MG/DL (8.5-10.1); CREATININE SERUM 0.96 MG/DL (0.60-1.30); POTASSIUM 3.8 MMOL/L (3.6-5.0); TOTAL PROTEIN 6.7 GM/DL (6.4-8.2)
== END 2018-10-29 | disposition home or self-care (01) ==
LOC: ONC 10:25
PROVIDERS: ATTEND Internal Medicine Hematology & Oncology
DX: C73 Malignant neoplasm of thyroid gland (principal); R97.0 Elevated carcinoembryonic antigen [CEA]; E03.9 Hypothyroidism, unspecified; R13.10 Dysphagia, unspecified; Z92.3 Personal history of irradiation; Z79.899 Other long term (current) drug therapy
CPT/HCPCS: 36415; 80053; 82308; 82378; 83497; 84443; 85025; 86316; 99213

== ENCOUNTER → 2018-11-11 | Outpatient (CLI) | payer MEDICARE, OTHER ==
--- NOTE | 2018-11-11 14:31 | Diagnostic Imaging Report ---
INDICATION: Thyroid carcinoma. TECHNIQUE: Pre- and post-contrast axial imaging through the abdomen and pelvis was performed. Post-contrast axial imaging through the neck and chest was also performed. COMPARISON: Comparison is made with prior CT neck study from 07/29/[address] prior [address] chest, abdomen, and pelvis study from 12/19/2017. CT NECK: The visualized intracranial structures are unremarkable. Posterior nasopharynx is unremarkable. Oropharynx and parapharyngeal tissues are unremarkable. Epiglottis and larynx are unremarkable. The thyroid appears to be surgically absent. There are clips in the thyroid bed. No definite residual or recurrent thyroid mass is identified. Parotid glands are unremarkable. No definite cervical lymphadenopathy is seen. IMPRESSION: Status post thyroidectomy. No residual or recurrent thyroid mass or evidence of cervical lymphadenopathy is detected. CT CHEST: No axillary lymphadenopathy is detected. Small lymph nodes in the mediastinum appear stable. No definite mediastinal or hilar lymphadenopathy is seen. No pericardial or pleural fluid is identified. No pulmonary infiltrates, nodules, or masses are seen. IMPRESSION: Stable unremarkable CT of the chest. There is no evidence of thoracic lymphadenopathy or pulmonary metastatic disease. CT ABDOMEN AND PELVIS: An enhancing mass in the left lobe of the liver appears to be larger when compared with prior exam, measuring 17 mm compared with 12 mm. No additional liver mass is identified. The gallbladder is surgically absent. There is no biliary ductal dilatation identified. The pancreas and spleen are unremarkable. No adrenal mass is seen. Kidneys are unremarkable. Aorta is nonaneurysmal. No central retroperitoneal or mesenteric lymphadenopathy is seen. The bowel loops are normal in caliber. There appears to be diverticulosis of the sigmoid but no evidence of acute diverticulitis. The bladder is unremarkable. No pelvic lymphadenopathy is seen. IMPRESSION: Enlarging mass in the left lobe of the liver, concerning for neoplasm. No other significant abnormality in the abdomen or pelvis is identified. Dictated by: Dictated on workstation # [id number]
== END ==
LOC: RAD 11:14
PROVIDERS: ATTEND Internal Medicine Hematology & Oncology
DX: C73 Malignant neoplasm of thyroid gland (principal); C7A.012 Malignant carcinoid tumor of the ileum; R16.0 Hepatomegaly, not elsewhere classified; Z90.89 Acquired absence of other organs; Z90.49 Acquired absence of other specified parts of digestive tract; Z98.890 Other specified postprocedural states
CPT/HCPCS: 70491; 71260; 74178

== ENCOUNTER 2018-12-03 06:04 | Outpatient (CLI) | payer MEDICARE, OTHER ==
[~2018-12-03] VITALS: Ht 158.8 cm; Wt 63.5 kg
[2018-12-03] VITALS (15 sets, daily range): BP systolic 119–187; BP diastolic 70–98
[2018-12-03 07:31] LABS: HEMOGLOBIN 13.2 G/DL (11.5-16.0); RED CELL DISTRIBUTION WIDTH 14.3 % (10.0-14.5); WHITE BLOOD COUNT 3.7 10^3/uL (4.3-11.0)
[2018-12-03 07:42] LABS: INR 1.1 (0.8-1.4); PROTHROMBIN TIME PATIENT 14.5 SEC (12.2-14.7)
[2018-12-03] MEDS ORDERED: NS IV 1000 ML 1,000 ML IV STA (08:05)
[2018-12-03] MEDS ORDERED: LIDOCAINE 1% INJ 20 ML 20 ML VIAL INJ ONE (08:15)
[2018-12-03] MEDS ORDERED: fentaNYL INJECTION 100 MCG/2 ML AMP IVP ONE (08:15)
[2018-12-03] MEDS ORDERED: MIDAZOLAM 2 MG/2 ML (VERSED) VIAL IVP ONE (08:15)
--- NOTE | 2018-12-03 09:58 | Pre-Op Note & Conscious Sedat ---
Pre-Operative Progress Note H&P Reviewed The H&P was reviewed, patient examined and no changes noted. Date H&P Reviewed: Dec 03, 2018 Time H&P Reviewed: 08:00 Pre-Op Diagnosis: Liver mass Conscious Sedation Pre-Proced Time 08:00 ASA Score 2 For ASA 3 and 4: Consider anesthesia and medical clearance. Also, for patients with a history of failed moderate sedation consider anesthesia. Airway Lungs Heart ASA score ASA 1: a normal healthy patient ASA 2: a patient with a mild systemic disease (mid diabetes, controlled hypertension, obesity ASA 3: a patient with a severe systemic disease that limits activity (angina, COPD, prior Myocardial infarction) ASA 4: a patient with an incapacitating disease that is a constant threat to life (CHF, renal failure) ASA 5: a moribund patient not expected to survive 24 hrs. (ruptured aneurysm) ASA 6: a declared brain- patient whose organs are being harvested. For emergent operations, add the letter E after the classification Mallampati Classification Grade 2 Sedation Plan Analgesia, Amnesia, Plan communicated to team members, Discussed options with patient/fam, Discussed risks with patient/fam The patient is an appropriate candidate to undergo the planned procedure, sedation, and anesthesia. The patient immediately re-assessed prior to indication. SANGITA LANDRY MD Dec 03, 2018 09:58
[2018-12-03] MEDS ORDERED: HYDROcodone/APAP 5 MG/325 MG (LORTAB) TAB PO PRN (10:00)
[2018-12-03] MEDS ORDERED: ONDANSETRON 4 MG/2 ML (SDV) Z0FRAN IV PRN (10:00)
--- NOTE | 2018-12-03 12:37 | Diagnostic Imaging Report ---
INDICATION: Liver mass. Patient presents for CT-guided biopsy. TECHNIQUE: Patient was brought to the CT suite, placed on table in the supine position. Axial imaging was performed to evaluate appropriate entry site. The procedure was performed utilizing conscious sedation with radiology nursing and constant patient monitoring. Patient was given a total of 50 mcg of fentanyl intravenously and 1 mg of Versed intravenously. Total procedure time was approximately 30 minutes. Anterior abdomen was prepped and draped in the usual sterile fashion. Small amount of 1% lidocaine was utilized for local anesthesia. 18-gauge coaxial Temno needle was advanced into the left lobe of the liver. Procedure was technically extremely challenging due to location of the lesion and a very small size of the lesion as well as variability in patient respiration. Total of four core biopsies were obtained. The needle was then repositioned and additional biopsies were obtained. Small blood patch was injected during needle removal. Hemostasis was obtained using manual compression. Followup imaging is without complicating features. IMPRESSION: CT-guided core biopsy of the left lobe liver mass utilizing conscious sedation. Pathology results are currently pending. Dictated by: Dictated on workstation # [id number]
== END 2018-12-03 12:30 | disposition home or self-care (01) ==
LOC: RAD 06:04 → SDC 09:55 → RAD 12:30
PROVIDERS: ATTEND Internal Medicine Hematology & Oncology
DX: C7A.012 Malignant carcinoid tumor of the ileum (principal); C73 Malignant neoplasm of thyroid gland; R16.0 Hepatomegaly, not elsewhere classified
CPT/HCPCS: 36415; 77012; 85027; 85610; 85730; 99156; 99157

== ENCOUNTER 2018-12-15 10:17 | Outpatient (RCR) | payer MEDICARE, OTHER ==
[2019-01-12] MEDS ORDERED: LEVO50TA6 PO (08:36)
== END 2019-02-04 | disposition home or self-care (01) ==
LOC: ONC 10:17
PROVIDERS: ATTEND Internal Medicine Hematology & Oncology
DX: C73 Malignant neoplasm of thyroid gland (principal); R97.0 Elevated carcinoembryonic antigen [CEA]; E03.9 Hypothyroidism, unspecified; R13.10 Dysphagia, unspecified; Z92.3 Personal history of irradiation; Z79.899 Other long term (current) drug therapy
CPT/HCPCS: 36415; 84443; 99213

== ENCOUNTER 2019-01-12 08:00 | Outpatient (CLI) | payer MEDICARE, OTHER ==
[~2019-01-12] VITALS: Ht 167.7 cm; Wt 64.5 kg
[2019-01-12] MEDS ORDERED: LEVO50TA6 PO (08:36)
== END 2019-01-12 09:03 | disposition home or self-care (01) ==
LOC: PREOP 08:00
PROVIDERS: ATTEND Surgery
DX: Z01.818 Encounter for other preprocedural examination (principal)

== ENCOUNTER 2019-01-14 07:02 | Day surgery (SDC) | payer MEDICARE, OTHER ==
[2019-01-14] VITALS (7 sets, daily range): BP systolic 100–178; BP diastolic 53–86
[~2019-01-14 07:02] MED LIST changes: +LACTATED RINGERS 1,000 ML IV ONE; +LEVO50TA6 PO
[2019-01-14] MEDS ORDERED: PROPOFOL INJECTION 50 ML IV ONE (07:05)
[2019-01-14] MEDS ORDERED: LACTATED RINGERS 1,000 ML IV STA (07:21)
--- NOTE | 2019-01-14 07:37 | Progress Note-Pre Operative ---
Pre-Operative Progress Note H&P Reviewed The H&P was reviewed, patient examined and no changes noted. Date Seen by Provider: Jan 14, 2019 Time Seen by Provider: 07:37 Date H&P Reviewed: Jan 14, 2019 Time H&P Reviewed: 07:37 Pre-Operative Diagnosis: bright red blood per rectum, history colon cancer TORI ROSENBERG DO Jan 14, 2019 07:37
[2019-01-14] MEDS ORDERED: PHENYLEPHRINE 100 MCG/ML 10 ML (ANESTHESIA) SYR ONE (07:42)
--- NOTE | 2019-01-14 08:34 | Progress Note-Post Operative ---
Post-Operative Progess Note Surgeon (s)/Health Information Technologist (s) Surgeon TORI ROSENBERG DO Health Information Technologist: na Pre-Operative Diagnosis bright red blood per rectum, history colon cancer Post-Operative Diagnosis colon polyp x 4 inflmamation at ileocolonic anastamosis Procedure & Operative Findings Date of Procedure 01/14/19 Procedure Performed/Findings colonoscopy c cold biopsies ileocolonic anastamosis stapleline snare polypectomy x 2 hot bx polypectomy x 2 Anesthesia Type per funeral director Estimated Blood Loss Estimated blood loss (mL): none Specimens/Packing Specimens Removed colon polyps, ileocolonic anastamosis TORI ROSENBERG DO Jan 14, 2019 08:33
--- NOTE | 2019-01-14 08:39 | Discharge Inst-Simple/Standard ---
Discharge Inst-Standard Patient Instructions/Follow Up Plan of Care/Instructions/FU: 2 weeks Anca Activity as Tolerated: Yes Discharge Diet: Regular Diet TORI ROSENBERG DO Jan 14, 2019 08:39
--- NOTE | 2019-01-14 09:47 | Anesthesia-General Post-Op ---
MAC Patient Condition Mental Status/LOC: Same as Preop Cardiovascular: Satisfactory Nausea/Vomiting: Absent Respiratory: Satisfactory Pain: Controlled Complications: Absent Post Op Complications Complications None Follow Up Care/Instructions Patient Instructions None needed. Anesthesiology Discharge Order Discharge Order Patient is doing well, no complaints, stable vital signs, no apparent adverse anesthesia problems. No complications reported per nursing. TOO PEREIRA CRNA Jan 14, 2019 09:47
--- NOTE | 2019-01-14 15:13 | OPERATIVE REPORT ---
DATE OF SERVICE: 01/14/2019 PREOPERATIVE DIAGNOSIS: Bright red blood per rectum and history of colon cancer. POSTOPERATIVE DIAGNOSIS: Colon polyps x4 and inflammation at the ileocolonic anastomosis. PROCEDURES: Colonoscopy with cold biopsy of the ileocolonic anastomosis staple line, snare polypectomy x2 and hot biopsy polypectomy x2. SURGEON: Tori March DO ANESTHESIA: Per SPACE SCHEDULER. ESTIMATED BLOOD LOSS: None. COMPLICATIONS: None. INDICATIONS: The patient is a 73-year-old female, who has had bright red blood per rectum. She has history of colon cancer. She understands risks and benefits of procedure and wished to proceed with procedure. Consent was signed in the chart. DESCRIPTION OF PROCEDURE: The patient was taken to the endoscopy suite, placed in left lateral recumbent position. Timeout was performed. Digital rectal exam was performed. There were no palpable polyps, masses or ulcerations. Scope was inserted in the rectum, advanced all the way to the ileocolonic anastomosis without difficulty. Prep was adequate. In the colonic portion at the anastomosis, a small polyp was present, which snare polypectomy was performed. Specimen was obtained. The ileocolonic anastomosis around the edge has a ridge that had slight inflamed appearance. Several cold biopsies were obtained of the ileocolonic anastomosis staple line. Scope was then continued to be slowly retracted back from the ileocolonic anastomosis through the transverse colon. There were no polyps, masses or ulcerations. In the descending colon, another polyp was present, which snare polypectomy was performed. Scope was then continued to be slowly retracted back where a sigmoid polyp was present, which hot biopsy polypectomy was performed. Scope was then continuously retracted back noting a small polyp in the rectum, which hot biopsy polypectomy was performed. Scope was retroflexed in the rectum, noting no other pathology. Scope was returned to its normal position, slowly withdrawn until completely removed. The patient tolerated procedure well without any complications. She was taken to recovery room in stable condition. RECOMMENDATIONS: The patient will follow up on biopsies in two weeks. Any issues before that, will be seen at that time. I feel the bleeding episodes she has possibly from the ileocolonic staple line, no other significant changes present or visualized. If any repeat of bleeding, I would re-examine at that time. Otherwise, repeat colonoscopy in one year. Job ID: [id number] DocumentID: [id number] Dictated Date: 01/14/2019 08:50:52 Service Learning Coordinator Date: 01/14/2019 15:12:52 Dictated By: TORI MARCH DO
== END 2019-01-14 09:31 | disposition home or self-care (01) ==
LOC: ENDO 07:02
PROVIDERS: ATTEND Surgery
DX: D12.4 Benign neoplasm of descending colon (principal); K91.89 Other postprocedural complications and disorders of digestive system; K63.5 Polyp of colon; K62.5 Hemorrhage of anus and rectum; I25.10 Atherosclerotic heart disease of native coronary artery without angina pectoris; I16.0 Hypertensive urgency; E78.5 Hyperlipidemia, unspecified; E03.9 Hypothyroidism, unspecified; C7A.00 Malignant carcinoid tumor of unspecified site; Z98.0 Intestinal bypass and anastomosis status; Z85.038 Personal history of other malignant neoplasm of large intestine; Z85.850 Personal history of malignant neoplasm of thyroid; Z90.710 Acquired absence of both cervix and uterus; Z90.49 Acquired absence of other specified parts of digestive tract; Z79.899 Other long term (current) drug therapy; Z88.8 Allergy status to other drugs, medicaments and biological substances; Z82.49 Family history of ischemic heart disease and other diseases of the circulatory system
CPT/HCPCS: 88305

== ENCOUNTER → 2019-02-27 | Outpatient (CLI) | payer MEDICARE, OTHER ==
[~2019-02-27] MED LIST changes: +CATHETER FLUSH 10 ML SYR IV PRN; +HOLD METFORMIN - RECEIVED CONTRAST 20 ML VIAL IV SCH; +IOHEXOL 350 MG/ML 100 ML (OMNIPAQUE 350) VIAL IV ONE; -LACTATED RINGERS 1,000 ML IV ONE; +NS 100 ML (IVPB) BAG IV ONE
[2019-02-27 14:53] LABS: CREATININE SERUM 1.29 MG/DL (0.60-1.30)
--- NOTE | 2019-02-27 19:30 | Diagnostic Imaging Report ---
PROCEDURE: CT abdomen with and without contrast. TECHNIQUE: Multiple contiguous axial CT images of the abdomen were obtained prior to and after intravenous administration of iodinated contrast. Auto Exposure Controls were utilized during the CT exam to meet ALARA standards for radiation dose reduction. DATE: February 27, 2019. INDICATION: 73-year-old female, history of medullary carcinoma of the thyroid. 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 COMPARISON: CT neck, chest, abdomen and pelvis, November 11, 2018. FINDINGS: There is mild dependent atelectasis in the lung bases. The heart is not enlarged. There is no identified pericardial effusion. The previously noted peripheral enhancing lesion in the left lobe of the liver is very subtle on today's exam which may relate to differences in timing of the contrast bolus. The lesion is estimated at 15 x 12 mm in size and previously measured approximately 17 x 13 mm in size. There is no additional visible liver lesion. The outer liver contours are not nodular. The main, right and left portal veins are patent. The patient is status post cholecystectomy. There is no intrahepatic or extrahepatic bile duct dilation. The main pancreatic duct is not abnormally dilated. Unremarkable noncontrast evaluation of the pancreatic parenchyma. The spleen is normal in size. The adrenal glands are unremarkable. There is an 8 mm low-attenuation left renal lesion on axial image 33, too small to characterize. The urinary collecting systems are not distended in their visualized segments. The visualized segments of the intestinal tract are not distended. There are atherosclerotic calcifications. There is a circumaortic left renal vein. There is no abnormally enlarged lymph node in the abdomen meeting CT size criteria for adenopathy. There is no identified bone lesions suspicious for bone metastasis. IMPRESSION: 1. Previously noted peripherally enhancing lesion in the left lobe of the liver, measuring 16 x 13 mm in size. It is very subtly present on current exam with differences in visualization potentially relating to differences in timing of the contrast bolus. The lesion is currently estimated at 15 x 12 mm in size and unlikely significantly changed in size since November 11, 2018. 2. No additional visible liver lesion. Dictated by: Dictated on workstation # [id number]
== END ==
LOC: RAD 14:19
PROVIDERS: ATTEND Student in an Organized Health Care Education/Training Program
DX: C73 Malignant neoplasm of thyroid gland (principal); C78.7 Secondary malignant neoplasm of liver and intrahepatic bile duct; Z90.49 Acquired absence of other specified parts of digestive tract
CPT/HCPCS: 36415; 74170; 82565; 84520

== ENCOUNTER 2019-03-31 14:23 | Outpatient (RCR) | payer MEDICARE, OTHER ==
[2019-02-19 15:14] LABS: BASOPHILS # (AUTO) 0.1 10^3/uL (0.0-0.1); BASOPHILS % (AUTO) 1 % (0-10); EOSINOPHILS # (AUTO) 0.1 10^3/uL (0.0-0.3); EOSINOPHILS % (AUTO) 2 % (0-10); HEMATOCRIT 41 % (35-52); HEMOGLOBIN 13.1 G/DL (11.5-16.0); LYMPHOCYTES # (AUTO) 0.7 X 10^3 (1.0-4.0); LYMPHOCYTES % (AUTO) 16 % (12-44); MEAN CORPUSCULAR HEMOGLOBIN 28 PG (25-34); MEAN CORPUSCULAR HGB CONC 32 G/DL (32-36); MEAN CORPUSCULAR VOLUME 87 FL (80-99); MONOCYTES # (AUTO) 0.4 X 10^3 (0.0-1.0); MONOCYTES % (AUTO) 9 % (0-12); NEUTROPHILS # (AUTO) 3.3 X 10^3 (1.8-7.8); NEUTROPHILS % (AUTO) 72 % (42-75); PLATELET COUNT 240 10^3/uL (130-400); RED CELL DISTRIBUTION WIDTH 14.6 % (10.0-14.5); WHITE BLOOD COUNT 4.6 10^3/uL (4.3-11.0)
[2019-02-19 15:33] LABS: ALBUMIN 4.3 GM/DL (3.2-4.5); BILIRUBIN,TOTAL 0.8 MG/DL (0.1-1.0); CALCIUM 9.5 MG/DL (8.5-10.1); CREATININE SERUM 1.29 MG/DL (0.60-1.30); TOTAL PROTEIN 7.2 GM/DL (6.4-8.2)
[~2019-03-31 14:23] MED LIST changes: -CATHETER FLUSH 10 ML SYR IV PRN; -HOLD METFORMIN - RECEIVED CONTRAST 20 ML VIAL IV SCH; -IOHEXOL 350 MG/ML 100 ML (OMNIPAQUE 350) VIAL IV ONE; -NS 100 ML (IVPB) BAG IV ONE
== END 2019-05-20 | disposition home or self-care (01) ==
LOC: ONC 14:23
PROVIDERS: ATTEND Internal Medicine Hematology & Oncology
DX: C73 Malignant neoplasm of thyroid gland (principal); C7A.012 Malignant carcinoid tumor of the ileum; E03.9 Hypothyroidism, unspecified; N18.3 Chronic kidney disease, stage 3 (moderate); C78.5 Secondary malignant neoplasm of large intestine and rectum; Z79.899 Other long term (current) drug therapy; Z90.89 Acquired absence of other organs
CPT/HCPCS: 36415; 80053; 84443; 85025; 99213

== ENCOUNTER 2019-08-10 11:12 | Outpatient (RCR) | payer MEDICARE, OTHER ==
[2019-05-21 13:50] LABS: BASOPHILS % (AUTO) 1 % (0-10); EOSINOPHILS # (AUTO) 0.1 10^3/uL (0.0-0.3); EOSINOPHILS % (AUTO) 2 % (0-10); HEMATOCRIT 43 % (35-52); HEMOGLOBIN 13.6 G/DL (11.5-16.0); LYMPHOCYTES # (AUTO) 0.6 X 10^3 (1.0-4.0); LYMPHOCYTES % (AUTO) 13 % (12-44); MEAN CORPUSCULAR HEMOGLOBIN 28 PG (25-34); MEAN CORPUSCULAR HGB CONC 32 G/DL (32-36); MEAN CORPUSCULAR VOLUME 87 FL (80-99); MEAN PLATELET VOLUME 8.9 FL (7.4-10.4); MONOCYTES # (AUTO) 0.3 X 10^3 (0.0-1.0); MONOCYTES % (AUTO) 7 % (0-12); NEUTROPHILS # (AUTO) 3.4 X 10^3 (1.8-7.8); NEUTROPHILS % (AUTO) 77 % (42-75); PLATELET COUNT 213 10^3/uL (130-400); RED CELL DISTRIBUTION WIDTH 14.1 % (10.0-14.5); WHITE BLOOD COUNT 4.4 10^3/uL (4.3-11.0)
[2019-05-21 14:14] LABS: ALBUMIN 4.2 GM/DL (3.2-4.5); BILIRUBIN,TOTAL 0.6 MG/DL (0.1-1.0); CALCIUM 9.9 MG/DL (8.5-10.1); CREATININE SERUM 1.48 MG/DL (0.60-1.30); POTASSIUM 4.5 MMOL/L (3.6-5.0); TOTAL PROTEIN 7.1 GM/DL (6.4-8.2)
[~2019-08-10 11:12] MED LIST changes: +MONT10TA26 PO
[2019-08-10 11:27] LABS: BASOPHILS # (AUTO) 0.1 10^3/uL (0.0-0.1); BASOPHILS % (AUTO) 2 % (0-10); EOSINOPHILS # (AUTO) 0.2 10^3/uL (0.0-0.3); EOSINOPHILS % (AUTO) 4 % (0-10); HEMATOCRIT 44 % (35-52); HEMOGLOBIN 14.3 G/DL (11.5-16.0); LYMPHOCYTES # (AUTO) 0.7 X 10^3 (1.0-4.0); LYMPHOCYTES % (AUTO) 16 % (12-44); MEAN CORPUSCULAR HEMOGLOBIN 28 PG (25-34); MEAN CORPUSCULAR HGB CONC 33 G/DL (32-36); MEAN CORPUSCULAR VOLUME 86 FL (80-99); MEAN PLATELET VOLUME 8.8 FL (7.4-10.4); MONOCYTES # (AUTO) 0.5 X 10^3 (0.0-1.0); MONOCYTES % (AUTO) 12 % (0-12); NEUTROPHILS # (AUTO) 2.9 X 10^3 (1.8-7.8); NEUTROPHILS % (AUTO) 68 % (42-75); PLATELET COUNT 228 10^3/uL (130-400); RED CELL DISTRIBUTION WIDTH 13.6 % (10.0-14.5); WHITE BLOOD COUNT 4.3 10^3/uL (4.3-11.0)
[2019-08-10 11:39] LABS: ALBUMIN 4.2 GM/DL (3.2-4.5)
[2019-08-10 11:40] LABS: POTASSIUM 3.9 MMOL/L (3.6-5.0)
[2019-08-10 11:41] LABS: CALCIUM 9.4 MG/DL (8.5-10.1)
[2019-08-10 11:42] LABS: TOTAL PROTEIN 7.3 GM/DL (6.4-8.2)
[2019-08-10 11:44] LABS: BILIRUBIN,TOTAL 0.6 MG/DL (0.1-1.0)
[2019-08-10 11:46] LABS: CREATININE SERUM 1.08 MG/DL (0.60-1.30)
== END 2019-08-19 | disposition home or self-care (01) ==
LOC: ONC 11:12
PROVIDERS: ATTEND Internal Medicine Hematology & Oncology
DX: C73 Malignant neoplasm of thyroid gland (principal); C7A.012 Malignant carcinoid tumor of the ileum; E03.9 Hypothyroidism, unspecified; N18.3 Chronic kidney disease, stage 3 (moderate); C78.5 Secondary malignant neoplasm of large intestine and rectum; Z79.899 Other long term (current) drug therapy; Z90.89 Acquired absence of other organs
CPT/HCPCS: 80053; 82308; 82378; 83615; 84443; 85025; 99213

== ENCOUNTER → 2019-11-03 | Outpatient (CLI) | payer MEDICARE, OTHER ==
--- NOTE | 2019-11-03 14:18 | Diagnostic Imaging Report ---
INDICATION: Hypertension. Grayscale, color-flow and Doppler evaluation of the kidneys and renal arteries was performed. Right kidney measures 9.4 x 5.2 x 5.5 cm and the left kidney measures 9.5 x 4.5 x 5.1 cm. Cortical thickness and echogenicity appears normal bilaterally. No calculi or hydronephrosis is detected. Renal arterial velocities appear normal bilaterally. The renal artery to aorta ratios are normal. Waveforms are grossly unremarkable. Bilateral ureteral jets are visualized. IMPRESSION: Unremarkable renal ultrasound and renal Doppler. Dictated by: Dictated on workstation # [id number]
== END ==
LOC: CARD 07:51
PROVIDERS: ATTEND Internal Medicine
DX: D3A.00 Benign carcinoid tumor of unspecified site (principal); I10 Essential (primary) hypertension
CPT/HCPCS: 76770; 93306; 93975

== ENCOUNTER → 2019-11-10 | Outpatient (CLI) | payer MEDICARE, OTHER ==
--- NOTE | 2019-11-10 16:06 | Diagnostic Imaging Report ---
INDICATION: Routine screening. Comparison is made with prior mammogram from 07/04/2011 and 06/30/2010. 2-D and 3-D bilateral screening mammography was performed with CAD. Both breasts remain heterogeneously dense, limiting the sensitivity of mammography. Fibronodular parenchymal pattern appears to be fairly stable. No spiculated mass or malignant appearing microcalcifications are identified. Axillae are unremarkable. IMPRESSION: BI-RADS Category 2 No mammographic features suspicious for malignancy are identified. ACR BI-RADS Category 2: Benign findings. Result letter will be mailed to the patient. Note: At least 10% of breast cancer is not imaged by mammography. Dictated by: Dictated on workstation # [id number]
== END ==
LOC: RAD 08:51
PROVIDERS: ATTEND Nurse Practitioner Adult Health
DX: Z12.31 Encounter for screening mammogram for malignant neoplasm of breast (principal)
CPT/HCPCS: 77063; 77067

== ENCOUNTER 2019-11-26 14:48 | Outpatient (RCR) | payer MEDICARE, OTHER ==
[2019-10-08 15:15] LABS: BASOPHILS % (AUTO) 1 % (0-10); EOSINOPHILS # (AUTO) 0.1 10^3/uL (0.0-0.3); EOSINOPHILS % (AUTO) 2 % (0-10); HEMATOCRIT 40 % (35-52); HEMOGLOBIN 13.4 G/DL (11.5-16.0); LYMPHOCYTES # (AUTO) 0.7 X 10^3 (1.0-4.0); LYMPHOCYTES % (AUTO) 15 % (12-44); MEAN CORPUSCULAR HEMOGLOBIN 28 PG (25-34); MEAN CORPUSCULAR HGB CONC 33 G/DL (32-36); MEAN CORPUSCULAR VOLUME 84 FL (80-99); MEAN PLATELET VOLUME 9.5 FL (7.4-10.4); MONOCYTES # (AUTO) 0.5 X 10^3 (0.0-1.0); MONOCYTES % (AUTO) 11 % (0-12); NEUTROPHILS % (AUTO) 71 % (42-75); PLATELET COUNT 257 10^3/uL (130-400); RED CELL DISTRIBUTION WIDTH 13.2 % (10.0-14.5); WHITE BLOOD COUNT 4.3 10^3/uL (4.3-11.0)
[2019-10-08 15:44] LABS: ALBUMIN 4.1 GM/DL (3.2-4.5); BILIRUBIN,TOTAL 0.7 MG/DL (0.1-1.0); CALCIUM 9.6 MG/DL (8.5-10.1); CREATININE SERUM 0.93 MG/DL (0.60-1.30); POTASSIUM 3.9 MMOL/L (3.6-5.0); TOTAL PROTEIN 7.1 GM/DL (6.4-8.2)
[2019-11-10 09:37] LABS: BASOPHILS # (AUTO) 0.1 10^3/uL (0.0-0.1); BASOPHILS % (AUTO) 2 % (0-10); EOSINOPHILS # (AUTO) 0.2 10^3/uL (0.0-0.3); EOSINOPHILS % (AUTO) 5 % (0-10); HEMATOCRIT 39 % (35-52); HEMOGLOBIN 12.9 G/DL (11.5-16.0); LYMPHOCYTES # (AUTO) 0.6 X 10^3 (1.0-4.0); LYMPHOCYTES % (AUTO) 19 % (12-44); MEAN CORPUSCULAR HEMOGLOBIN 28 PG (25-34); MEAN CORPUSCULAR HGB CONC 33 G/DL (32-36); MEAN CORPUSCULAR VOLUME 84 FL (80-99); MEAN PLATELET VOLUME 9.1 FL (7.4-10.4); MONOCYTES # (AUTO) 0.4 X 10^3 (0.0-1.0); MONOCYTES % (AUTO) 13 % (0-12); NEUTROPHILS % (AUTO) 61 % (42-75); PLATELET COUNT 228 10^3/uL (130-400); RED CELL DISTRIBUTION WIDTH 13.2 % (10.0-14.5); WHITE BLOOD COUNT 3.3 10^3/uL (4.3-11.0)
[2019-11-10 10:06] LABS: ALBUMIN 3.8 GM/DL (3.2-4.5); BILIRUBIN,TOTAL 0.6 MG/DL (0.1-1.0); CALCIUM 9.1 MG/DL (8.5-10.1); CREATININE SERUM 0.93 MG/DL (0.60-1.30); POTASSIUM 3.7 MMOL/L (3.6-5.0); TOTAL PROTEIN 6.5 GM/DL (6.4-8.2)
[2019-11-26 15:01] LABS: BASOPHILS # (AUTO) 0.1 10^3/uL (0.0-0.1); BASOPHILS % (AUTO) 1 % (0-10); EOSINOPHILS # (AUTO) 0.1 10^3/uL (0.0-0.3); EOSINOPHILS % (AUTO) 2 % (0-10); HEMATOCRIT 39 % (35-52); HEMOGLOBIN 13.2 G/DL (11.5-16.0); LYMPHOCYTES # (AUTO) 0.8 X 10^3 (1.0-4.0); LYMPHOCYTES % (AUTO) 19 % (12-44); MEAN CORPUSCULAR HEMOGLOBIN 28 PG (25-34); MEAN CORPUSCULAR HGB CONC 34 G/DL (32-36); MEAN CORPUSCULAR VOLUME 83 FL (80-99); MEAN PLATELET VOLUME 9.1 FL (7.4-10.4); MONOCYTES # (AUTO) 0.5 X 10^3 (0.0-1.0); MONOCYTES % (AUTO) 11 % (0-12); NEUTROPHILS # (AUTO) 2.9 X 10^3 (1.8-7.8); NEUTROPHILS % (AUTO) 67 % (42-75); PLATELET COUNT 255 10^3/uL (130-400); RED CELL DISTRIBUTION WIDTH 13.4 % (10.0-14.5); WHITE BLOOD COUNT 4.3 10^3/uL (4.3-11.0)
[2019-11-26 15:22] LABS: ALBUMIN 4.1 GM/DL (3.2-4.5); BILIRUBIN,TOTAL 0.6 MG/DL (0.1-1.0); CALCIUM 9.1 MG/DL (8.5-10.1); CREATININE SERUM 1.08 MG/DL (0.60-1.30); POTASSIUM 3.5 MMOL/L (3.6-5.0)
== END 2019-11-30 | disposition home or self-care (01) ==
LOC: ONC 14:48
PROVIDERS: ATTEND Internal Medicine Hematology & Oncology
DX: C73 Malignant neoplasm of thyroid gland (principal); C7A.012 Malignant carcinoid tumor of the ileum; E03.9 Hypothyroidism, unspecified; N18.3 Chronic kidney disease, stage 3 (moderate); C78.5 Secondary malignant neoplasm of large intestine and rectum; Z79.899 Other long term (current) drug therapy; Z90.89 Acquired absence of other organs
CPT/HCPCS: 80053; 82308; 82378; 83497; 83615; 84443; 85025; 86316; 99213

== ENCOUNTER 2020-01-26 05:43 | Outpatient (CLI) | payer MEDICARE, OTHER ==
[~2020-01-26] VITALS: Ht 167 cm; Wt 67.7 kg
[2020-01-26] MEDS ORDERED: LEVO100T7 PO (15:04)
[2020-01-26] MEDS ORDERED: MTP25TSR PO (15:04)
== END 2020-01-26 15:08 | disposition home or self-care (01) ==
LOC: PREOP 05:43
PROVIDERS: ATTEND Surgery
DX: Z01.818 Encounter for other preprocedural examination (principal)

== ENCOUNTER 2020-02-02 10:55 | Day surgery (SDC) | payer MEDICARE, OTHER ==
[~2020-02-02] VITALS: Ht 167 cm; Wt 67.7 kg
[2020-02-02] VITALS (8 sets, daily range): BP systolic 126–173; BP diastolic 63–94
[~2020-02-02 10:55] MED LIST changes: +LACTATED RINGERS 1,000 ML IV ONE; +LEVO100T7 PO; +MTP25TSR PO
[2020-02-02] MEDS ORDERED: LACTATED RINGERS 1,000 ML IV STA (11:00)
[2020-02-02] MEDS ORDERED: PROPOFOL INJECTION 50 ML IV ONE (11:12)
--- NOTE | 2020-02-02 11:46 | Progress Note-Pre Operative ---
Pre-Operative Progress Note H&P Reviewed The H&P was reviewed, patient examined and no changes noted. Date Seen by Provider: Feb 02, 2020 Time Seen by Provider: 11:45 Date H&P Reviewed: Feb 02, 2020 Time H&P Reviewed: :45 Pre-Operative Diagnosis: history colon cancer TORI ROSENBERG DO Feb 02, 2020 11:46
--- NOTE | 2020-02-02 12:28 | Progress Note-Post Operative ---
Post-Operative Progess Note Surgeon (s)/Kiln Feeder (s) Surgeon TORI ROSENBERG DO Kiln Feeder: n/a Pre-Operative Diagnosis history colon cancer Post-Operative Diagnosis sigmoid polyp ileocolonic anastomosis diverticulosis Procedure & Operative Findings Date of Procedure 02/02/20 Procedure Performed/Findings hot biopsy of ileocolonic anastomosis staple line sigmoid polypectomy with snare Anesthesia Type per TELEVISION INSTALLER HELPER Estimated Blood Loss Estimated blood loss (mL): scant Specimens/Packing Specimens Removed ileocolonic anastomosis hot biopsy sigmoid polyp, snare TORI ROSENBERG DO Feb 02, 2020 12:28
--- NOTE | 2020-02-02 12:29 | Discharge Inst-Simple/Standard ---
Discharge Inst-Standard Discharge Medications New, Converted or Re-Newed RX: RX on Chart Patient Instructions/Follow Up Plan of Care/Instructions/FU: 2-3 weeks Anca Activity as Tolerated: Yes Discharge Diet: Regular Diet TORI ROSENBERG DO Feb 02, 2020 12:29
--- NOTE | 2020-02-02 12:50 | OPERATIVE REPORT ---
DATE OF SERVICE: 02/02/2020 PREOPERATIVE DIAGNOSIS: History of colon cancer. POSTOPERATIVE DIAGNOSES: Diverticulosis, ileocolonic anastomosis growth and sigmoid colon polyp. PROCEDURE: Colonoscopy with hot biopsy of the ileocolonic anastomosis. Snare polypectomy, sigmoid colon. SURGEON: Tori March DO ANESTHESIA: Per GREEN PROMOTIONS SPECIALIST. ESTIMATED BLOOD LOSS: None. COMPLICATIONS: None. INDICATIONS: The patient is a 74-year-old female with history of colon cancer. She understands risks and benefits of procedure and wished to proceed with procedure. Consent was signed in the chart. DESCRIPTION OF PROCEDURE: The patient was taken to the endoscopy suite, placed in left lateral recumbent position. Timeout was performed. Digital rectal exam was performed. There were no palpable polyps, masses or ulcerations. Slight narrowing at the anus. Scope was inserted in the rectum, advanced all the way to the ileocolonic anastomosis without difficulty. Prep was adequate. Scope was then slowly retracted back. At the staple line at the ileocolonic anastomosis, there was an area of thickening was stable. I think this is reactive. Biopsy was obtained and then the area was burned for hot biopsy polypectomy. Scope was then slowly retracted back. There were no polyps, masses or ulcerations within the remainder of the ascending and transverse colon or descending colon. In the sigmoid, a very minimal amount of diverticulosis present. A small polyp was present, which snare polypectomy was performed. Scope was then continuously retracted back into the rectum, where it was also retroflexed noting no other pathology. Scope was returned to its normal position, slowly withdrawn until completely removed. The patient tolerated procedure well without complications, taken to recovery room in stable condition. RECOMMENDATIONS: The patient will follow up on biopsies in about 2 to 3 weeks. We will need repeat colonoscopy in 3 years. Any issues before that be seen at that time. Job ID: [id number] DocumentID: [id number] Dictated Date: 02/02/2020 12:41:19 Tablet Making Machine Operator Helper Date: 02/02/2020 12:50:02 Dictated By: TORI MARCH DO
--- NOTE | 2020-02-02 12:59 | Anesthesia-General Post-Op ---
MAC Patient Condition Mental Status/LOC: Same as Preop Cardiovascular: Satisfactory Nausea/Vomiting: Absent Respiratory: Satisfactory Pain: Controlled Complications: Absent Post Op Complications Complications None Follow Up Care/Instructions Patient Instructions None needed. Anesthesiology Discharge Order Discharge Order Patient is doing well, no complaints, stable vital signs, no apparent adverse anesthesia problems. No complications reported per nursing. GALINA ALAN CRNA Feb 02, 2020 12:59
== END 2020-02-02 13:30 | disposition home or self-care (01) ==
LOC: ENDO 10:55
PROVIDERS: ATTEND Surgery
DX: K63.5 Polyp of colon (principal); K57.30 Diverticulosis of large intestine without perforation or abscess without bleeding; I10 Essential (primary) hypertension; K21.9 Gastro-esophageal reflux disease without esophagitis; I25.10 Atherosclerotic heart disease of native coronary artery without angina pectoris; E78.5 Hyperlipidemia, unspecified; E03.9 Hypothyroidism, unspecified; Z79.899 Other long term (current) drug therapy; Z85.038 Personal history of other malignant neoplasm of large intestine; Z85.850 Personal history of malignant neoplasm of thyroid; Z90.710 Acquired absence of both cervix and uterus
CPT/HCPCS: 45384; 45385; U0002; 87635; 88305

== ENCOUNTER → 2020-03-07 | Outpatient (CLI) | payer MEDICARE, OTHER ==
[~2020-03-07] MED LIST changes: +AMLO-250 PO; -AMLO5TAB9 PO; +HOLD METFORMIN - RECEIVED CONTRAST 20 ML VIAL IV SCH; +IOHEXOL 350 MG/ML 100 ML (OMNIPAQUE 350) VIAL IV ONE; -LACTATED RINGERS 1,000 ML IV ONE; +NS 100 ML (IVPB) BAG IV ONE
--- NOTE | 2020-03-07 09:55 | Diagnostic Imaging Report ---
EXAMINATION: CT NECK/CHEST/ABDOMEN. TECHNIQUE: CT imaging of the neck, chest, and abdomen was performed with IV contrast. Automatic exposure control was utilized for dose optimization. INDICATION: Thyroid cancer. Metastasis to liver. COMPARISON: CT abdomen/pelvis of 02/27/2019. CT neck, chest, abdomen, and pelvis of 11/11/2018. FINDINGS: CT NECK: Stable post operative changes of thyroidectomy with bilateral cervical lymph node dissection. No recurrent soft tissue mass or lymphadenopathy. Airway is patent. Bilateral neck arteries are patent. Multilevel degenerative changes in the cervical spine are stable compared to prior examinations. No high-grade spinal stenosis. No focal osseous lesion that would suggest skeletal metastasis. Visualized aspects of brain show no space-occupying mass or hydrocephalus. Bilateral cataract surgery has been performed. CT CHEST: No endoluminal nodule within the trachea. No pulmonary mass, nodule, or consolidation. No pleural effusion or pneumothorax. Asymmetric elevation of the right hemidiaphragm is unchanged. No mediastinal, hilar, or juxtaphrenic lymphadenopathy. Heart is normal in size without pericardial effusion. Normal caliber thoracic aorta. No worrisome focal osseous lesions. CT ABDOMEN: No free intraperitoneal air or fluid. The previously noted hyperenhancing mass in the anterior left hepatic lobe is not appreciated on today's examination. There is some slight hypoattenuation in this region at the biopsy site which may represent some post operative scarring but this is non-masslike in nature. No new hepatic lesions. Cholecystectomy without biliary duct dilatation. The spleen and pancreas are normal. No adrenal mass. Kidneys enhance symmetrically without mass lesion or obstruction. No renal stones. No dilated loops of bowel to indicate bowel obstruction. No abdominal lymphadenopathy. No osseous abnormality that would suggest metastasis. IMPRESSION: 1. No change in CT neck to indicate local recurrence or regional metastasis. 2. No change in CT chest to indicate metastatic disease. 3. The previously noted hyperenhancing lesion in the left hepatic lobe has resolved. No new hepatic metastases. No additional areas of metastatic disease in the abdomen. Dictated by: Dictated on workstation # [id number]
== END ==
LOC: RAD 08:57
PROVIDERS: ATTEND Internal Medicine Hematology & Oncology
DX: C73 Malignant neoplasm of thyroid gland (principal); C78.7 Secondary malignant neoplasm of liver and intrahepatic bile duct; C77.9 Secondary and unspecified malignant neoplasm of lymph node, unspecified
CPT/HCPCS: 70491; 71260; 74160

== ENCOUNTER 2020-04-07 14:56 | Outpatient (RCR) | payer MEDICARE, OTHER ==
[2020-02-18 11:29] LABS: BASOPHILS # (AUTO) 0.1 10^3/uL (0.0-0.1); BASOPHILS % (AUTO) 1 % (0-10); EOSINOPHILS # (AUTO) 0.1 10^3/uL (0.0-0.3); EOSINOPHILS % (AUTO) 3 % (0-10); HEMATOCRIT 41 % (35-52); HEMOGLOBIN 13.2 g/dL (11.5-16.0); LYMPHOCYTES # (AUTO) 0.7 10^3/uL (1.0-4.0); LYMPHOCYTES % (AUTO) 18 % (12-44); MEAN CORPUSCULAR HEMOGLOBIN 28 pg (25-34); MEAN CORPUSCULAR HGB CONC 32 g/dL (32-36); MEAN CORPUSCULAR VOLUME 87 fL (80-99); MONOCYTES # (AUTO) 0.4 10^3/uL (0.0-1.0); MONOCYTES % (AUTO) 10 % (0-12); NEUTROPHILS # (AUTO) 2.8 10^3/uL (1.8-7.8); NEUTROPHILS % (AUTO) 67 % (42-75); PLATELET COUNT 214 10^3/uL (130-400); WHITE BLOOD COUNT 4.2 10^3/uL (4.3-11.0)
[2020-02-18 11:47] LABS: BILIRUBIN,TOTAL 0.8 MG/DL (0.1-1.0); CALCIUM 9.3 MG/DL (8.5-10.1); CREATININE SERUM 1.29 MG/DL (0.60-1.30); POTASSIUM 3.7 MMOL/L (3.6-5.0); TOTAL PROTEIN 6.7 GM/DL (6.4-8.2)
[~2020-04-07 14:56] MED LIST changes: -HOLD METFORMIN - RECEIVED CONTRAST 20 ML VIAL IV SCH; -IOHEXOL 350 MG/ML 100 ML (OMNIPAQUE 350) VIAL IV ONE; -MONT10TA26 PO; +MONT10TA97 PO; -NS 100 ML (IVPB) BAG IV ONE
[2020-04-07 15:33] LABS: BASOPHILS % (AUTO) 1 % (0-10); EOSINOPHILS # (AUTO) 0.1 10^3/uL (0.0-0.3); EOSINOPHILS % (AUTO) 2 % (0-10); HEMATOCRIT 40 % (35-52); LYMPHOCYTES # (AUTO) 0.8 10^3/uL (1.0-4.0); LYMPHOCYTES % (AUTO) 18 % (12-44); MEAN CORPUSCULAR HEMOGLOBIN 28 pg (25-34); MEAN CORPUSCULAR HGB CONC 33 g/dL (32-36); MEAN CORPUSCULAR VOLUME 87 fL (80-99); MEAN PLATELET VOLUME 9.2 fL (9.0-12.2); MONOCYTES # (AUTO) 0.4 10^3/uL (0.0-1.0); MONOCYTES % (AUTO) 10 % (0-12); NEUTROPHILS # (AUTO) 2.9 10^3/uL (1.8-7.8); NEUTROPHILS % (AUTO) 69 % (42-75); PLATELET COUNT 216 10^3/uL (130-400); WHITE BLOOD COUNT 4.3 10^3/uL (4.3-11.0)
[2020-04-07 15:50] LABS: BILIRUBIN,TOTAL 0.8 MG/DL (0.1-1.0); CALCIUM 9.2 MG/DL (8.5-10.1); CREATININE SERUM 1.25 MG/DL (0.60-1.30); POTASSIUM 4.1 MMOL/L (3.6-5.0); TOTAL PROTEIN 6.8 GM/DL (6.4-8.2)
== END 2020-05-09 16:52 | disposition home or self-care (01) ==
LOC: ONC 14:56
PROVIDERS: ATTEND Internal Medicine Hematology & Oncology
DX: C73 Malignant neoplasm of thyroid gland (principal); C7A.012 Malignant carcinoid tumor of the ileum; I10 Essential (primary) hypertension; E03.9 Hypothyroidism, unspecified; I25.10 Atherosclerotic heart disease of native coronary artery without angina pectoris; C78.5 Secondary malignant neoplasm of large intestine and rectum; K57.31 Diverticulosis of large intestine without perforation or abscess with bleeding; K63.5 Polyp of colon; Z90.89 Acquired absence of other organs; Z79.899 Other long term (current) drug therapy; Z85.038 Personal history of other malignant neoplasm of large intestine; Z90.49 Acquired absence of other specified parts of digestive tract; Z98.890 Other specified postprocedural states
CPT/HCPCS: 80053; 82308; 82378; 83497; 83615; 84443; 85025; 86316; 99213

== ENCOUNTER 2020-05-31 14:43 | Outpatient (RCR) | payer MEDICARE, OTHER ==
[2020-05-26 14:32] LABS: BASOPHILS # (AUTO) 0.1 10^3/uL (0.0-0.1); BASOPHILS % (AUTO) 1 % (0-10); EOSINOPHILS # (AUTO) 0.1 10^3/uL (0.0-0.3); EOSINOPHILS % (AUTO) 2 % (0-10); HEMATOCRIT 42 % (35-52); HEMOGLOBIN 13.7 G/DL (11.5-16.0); LYMPHOCYTES # (AUTO) 0.7 X 10^3 (1.0-4.0); LYMPHOCYTES % (AUTO) 14 % (12-44); MEAN CORPUSCULAR HEMOGLOBIN 28 PG (25-34); MEAN CORPUSCULAR HGB CONC 33 G/DL (32-36); MEAN CORPUSCULAR VOLUME 86 FL (80-99); MEAN PLATELET VOLUME 8.7 FL (7.4-10.4); MONOCYTES # (AUTO) 0.6 X 10^3 (0.0-1.0); MONOCYTES % (AUTO) 12 % (0-12); NEUTROPHILS # (AUTO) 3.1 X 10^3 (1.8-7.8); NEUTROPHILS % (AUTO) 70 % (42-75); PLATELET COUNT 255 10^3/uL (130-400); WHITE BLOOD COUNT 4.5 10^3/uL (4.3-11.0)
[2020-05-26 14:44] LABS: ALBUMIN 4.1 GM/DL (3.2-4.5); BILIRUBIN,TOTAL 0.7 MG/DL (0.1-1.0); CALCIUM 9.5 MG/DL (8.5-10.1); CREATININE SERUM 1.14 MG/DL (0.60-1.30); POTASSIUM 4.2 MMOL/L (3.6-5.0); TOTAL PROTEIN 6.9 GM/DL (6.4-8.2)
[~2020-05-31 14:43] MED LIST changes: +MONT10TA32 PO; -MONT10TA97 PO; +SERT-413 PO; -SERT50TA9 PO
== END 2020-08-24 | disposition home or self-care (01) ==
LOC: ONC 14:43
PROVIDERS: ATTEND Internal Medicine Hematology & Oncology
DX: C73 Malignant neoplasm of thyroid gland (principal); C7A.012 Malignant carcinoid tumor of the ileum; C78.7 Secondary malignant neoplasm of liver and intrahepatic bile duct; C77.9 Secondary and unspecified malignant neoplasm of lymph node, unspecified; I10 Essential (primary) hypertension; E03.9 Hypothyroidism, unspecified; I25.10 Atherosclerotic heart disease of native coronary artery without angina pectoris; E78.5 Hyperlipidemia, unspecified; D3A.00 Benign carcinoid tumor of unspecified site; Z90.89 Acquired absence of other organs; Z79.899 Other long term (current) drug therapy; Z90.49 Acquired absence of other specified parts of digestive tract; Z98.890 Other specified postprocedural states; Z92.21 Personal history of antineoplastic chemotherapy; Z92.3 Personal history of irradiation
CPT/HCPCS: 80053; 82308; 82378; 84443; 85025; 99213

== ENCOUNTER 2020-09-14 19:36 | Emergency (ER) | payer MEDICARE, OTHER ==
[~2020-09-14] VITALS: Ht 165.1 cm; Wt 70.9 kg
[2020-09-14] MEDS ORDERED: meTOprolol 5 MG/5 ML (LOPRESSOR) VIAL IV ONE (20:00)
[2020-09-14] MEDS ORDERED: cloNIDine 0.1 MG (CATAPRES) TAB PO ONE (20:00)
[2020-09-14] MEDS ORDERED: ASPIRIN 81 MG CHEW (CHILDREN'S ASA) PO ONE (20:00)
--- NOTE | 2020-09-14 20:03 | ED General ---
General Stated Complaint: HIGH BP 208/89 Source of Information: Patient Exam Limitations: No Limitations (MAN BARKER APRN) History of Present Illness Date Seen by Provider: September 14, 2020 Time Seen by Provider: 20:01 Initial Comments To ER with hypertension. At about 5 PM she had some flashes in her right eye. She told her and family about this and they convinced her that something must be wrong. She states that their insistence that something must be wrong upset her so she checked her blood pressure and found it to be 208 systolic. Normally she runs in the 130s to 140s. She does not have chest pain she does have chronic unchanged shortness of breath. Timing/Duration: 1-2 Days Severity: Moderate Associated Systoms: No Nausea/Vomiting (MAN BARKER APRN) Allergies and Home Medications Allergies Coded Allergies: albuterol (Verified Allergy, Mild, HIVES, 01/26/20) Home Medications Amlodipine Besylate 5 Mg Tablet, 5 MG PO DAILY, (Reported) Fenofibric Acid (Choline) 135 Mg Capsule.dr, 135 MG PO DAILY, (Reported) Furosemide 20 Mg Tablet, 20 MG PO DAILY, (Reported) Lansoprazole 30 Mg Capsule.dr, 30 MG PO DAILY, (Reported) Levothyroxine Sodium 100 Mcg Tablet, 100 MCG PO DAILY, (Reported) Losartan Potassium 50 Mg Tablet, 50 MG PO DAILY, (Reported) Metoprolol Succinate 25 Mg Tab.er.24h, 25 MG PO DAILY, (Reported) Montelukast Sodium 10 Mg Tablet, 10 MG PO DAILY, (Reported) Patient Home Medication List Home Medication List Reviewed: Yes (MAN BARKER APRN) Review of Systems Review of Systems Constitutional: see HPI EENTM: see HPI Respiratory: no symptoms reported Cardiovascular: no symptoms reported Genitourinary: no symptoms reported Musculoskeletal: no symptoms reported Skin: no symptoms reported Psychiatric/Neurological: No Symptoms Reported Hematologic/Lymphatic: No Symptoms Reported Immunological/Allergic: no symptoms reported (MAN BARKER APRN) Past Mwslxyw-Icouht-Njchqe Hx Patient Social History 2nd Hand Smoke Exposure: No Recent Hopitalizations: No (MAN BARKER APRN) Alcohol Use: Denies Use Smoking Status: Never a Smoker (HUGO GUNDERSON) Immunizations Up To Date Tetanus Booster (TDap): Unknown PED Vaccines UTD: No Date of Influenza Vaccine: Jan 27, 2017 (MAN BARKER APRN) Seasonal Allergies Seasonal Allergies: Yes (MAN BARKER APRN) Past Medical History Surgeries: Yes (hemorrhoidectomy, knee scope, colon resection) Gallbladder, Hysterectomy, Thyroidectomy Respiratory: No (scar tissue from thyroid ca radition) Cardiac: Yes Chronic Edema/Swelling, Hypertension Neurological: No Reproductive Disorders: No PIN SETTER History: Hysterectomy Sexually Transmitted Disease: No HIV/AIDS: No Genitourinary: No Gastrointestinal: Yes (HX COLON CANCER) Gastroesophageal Reflux, Chronic Diarrhea Musculoskeletal: Yes Arthritis, Chronic Back Pain Endocrine: Yes (THYROIDECTOMY) HEENT: Yes (CATARACT removed, lower dentures) Cancer: Yes Colon, Thyroid What Type of Treatment Did You: Radiation, Surgical Intervention Psychosocial: No Integumentary: No Blood Disorders: No Adverse Reaction/Blood Tranf: No (N/A) (MAN BARKER APRN) Physical Exam Vital Signs Vital Signs - First Documented 09/14/20 19:50 Temp 36.0 Pulse 82 Resp 18 B/P (MAP) 235/119 (157) Pulse Ox 97 O2 Delivery Room Air (HUGO GUNDERSON) Vital Signs Capillary Refill : (MAN BARKER APRN) Height, Weight, BMI Height: 5'2.50" Weight: 140lbs. 0.0oz. 63.470202iv; 24.27 BMI Method:Stated General Appearance: No Apparent Distress, WD/WN Eyes: Bilateral Eye Normal Inspection, Bilateral Eye PERRL, Bilateral Eye EOMI Neck: Full Range of Motion, Normal Inspection Respiratory: No Accessory Muscle Use, No Respiratory Distress Gastrointestinal: Normal Bowel Sounds, Non Tender, Soft Extremity: Normal Capillary Refill, Normal Inspection Neurologic/Psychiatric: Alert, Oriented x3 Skin: Normal Color, Warm/Dry (MAN BARKER APRN) Progress/Results/Core Measures Suspected Sepsis SIRS Temperature: Pulse: Respiratory Rate: Blood Pressure / Mean: (MAN BARKER APRN) Results/Orders Lab Results Laboratory Tests Test 09/14/20 20:05 Range/Units White Blood Count 4.1 L 4.3-11.0 10^3/uL Red Blood Count 5.04 3.80-5.11 10^6/uL Hemoglobin 14.3 11.5-16.0 g/dL Hematocrit 43 35-52 % Mean Corpuscular Volume 86 80-99 fL Mean Corpuscular Hemoglobin 28 25-34 pg Mean Corpuscular Hemoglobin Concent 33 32-36 g/dL Red Cell Distribution Width 13.4 10.0-14.5 % Platelet Count 261 130-400 10^3/uL Mean Platelet Volume 9.2 9.0-12.2 fL Immature Granulocyte % (Auto) 1 % Neutrophils (%) (Auto) 67 42-75 % Lymphocytes (%) (Auto) 18 12-44 % Monocytes (%) (Auto) 11 0-12 % Eosinophils (%) (Auto) 2 0-10 % Basophils (%) (Auto) 1 0-10 % Neutrophils # (Auto) 2.8 1.8-7.8 10^3/uL Lymphocytes # (Auto) 0.8 L 1.0-4.0 10^3/uL Monocytes # (Auto) 0.5 0.0-1.0 10^3/uL Eosinophils # (Auto) 0.1 0.0-0.3 10^3/uL Basophils # (Auto) 0.1 0.0-0.1 10^3/uL Immature Granulocyte # (Auto) 0.0 0.0-0.1 10^3/uL Prothrombin Time 14.1 12.2-14.7 SEC INR Comment 1.1 0.8-1.4 Activated Partial Thromboplast Time 27 24-35 SEC Sodium Level 142 135-145 MMOL/L Potassium Level 3.7 3.6-5.0 MMOL/L Chloride Level 104 98-107 MMOL/L Carbon Dioxide Level 29 21-32 MMOL/L Anion Gap 9 5-14 MMOL/L Blood Urea Nitrogen 12 7-18 MG/DL Creatinine 0.98 0.60-1.30 MG/DL Estimat Glomerular Filtration Rate 55 BUN/Creatinine Ratio 12 Glucose Level 113 H 70-105 MG/DL Calcium Level 9.9 8.5-10.1 MG/DL Corrected Calcium 9.6 8.5-10.1 MG/DL Magnesium Level 2.1 1.6-2.4 MG/DL Total Bilirubin 0.6 0.1-1.0 MG/DL Aspartate Amino Transf (AST/SGOT) 22 5-34 U/L Alanine Aminotransferase (ALT/SGPT) 18 0-55 U/L Alkaline Phosphatase 99 40-136 U/L Myoglobin 42.2 10.0-92.0 NG/ML Troponin I < 0.028 <0.028 NG/ML B-Type Natriuretic Peptide 195.1 H <100.0 PG/ML Total Protein 7.7 6.4-8.2 GM/DL Albumin 4.4 3.2-4.5 GM/DL (HUGO GUNDERSON) My Orders Orders - HUGO GUNDERSON Labetalol Injection (Normodyne Injection (09/14/20 21:45) Acetaminophen Tablet (Tylenol Tablet) (09/14/20 22:30) (HUGO GUNDERSON) Medications Given in ED Current Medications Medications Dose Ordered Sig/Juvenal Route Start Time Stop Time Status Last Admin Dose Admin Acetaminophen 1,000 mg ONCE ONCE PO 09/14/20 22:30 09/14/20 22:31 DC 09/14/20 22:24 1,000 MG Aspirin 324 mg ONCE ONCE PO 09/14/20 20:00 09/14/20 20:01 DC 09/14/20 20:22 162 MG Clonidine HCl 0.1 mg ONCE ONCE PO 09/14/20 20:00 09/14/20 20:01 DC 09/14/20 20:17 0.1 MG Labetalol HCl 20 mg ONCE ONCE IV 09/14/20 21:45 09/14/20 21:46 DC 09/14/20 21:40 20 MG Metoprolol Tartrate 5 mg ONCE ONCE IV 09/14/20 20:00 09/14/20 20:01 DC 09/14/20 20:17 5 MG (HUGO GUNDERSON) Vital Signs/I&O 09/14/20 09/14/20 09/14/20 09/14/20 19:50 21:30 21:49 22:45 Temp 36.0 Pulse 82 64 73 76 Resp 18 17 21 19 B/P (MAP) 235/119 (157) 213/93 (133) 158/80 (106) 207/92 (130) Pulse Ox 97 96 96 99 O2 Delivery Room Air Room Air Room Air Room Air (HUGO GUNDERSON) Vital Signs/I&O Capillary Refill : (MAN BARKER APRN) Progress Note #1: Time: 21:18 Progress Note Patient has corrected vision 20/20 bilateral. Concerned that she has a retinal detachment related to her hypertension. Her blood pressure has significantly improved after a dose of clonidine and metoprolol IV. Assumed care of the patient at shift change and are looking for the results of her CT. We will then consult with optometry. Patient has an extensive history of migraine headaches. Progress Note #2: Time: 22:49 Progress Note Tylenol has only marginally helped her headache so we will give her some Phenergan, Benadryl and Toradol. Return precautions discussed. (HUGO GUNDERSON) ECG Initial ECG Impression Date: September 14, 2020 Initial ECG Impression Time: 19:52 Initial ECG Rate: 79 Initial ECG Rhythm: Normal Sinus Initial ECG Intervals: Normal Initial ECG Impression: Normal Initial ECG Comparisson: No Previous ECG Available Comment First-degree AV block. No clinically relevant ST changes. (HUGO GUNDERSON) Diagnostic Imaging Diagonstic Imaging: Xray Plain Films/CT/US/NM/MRI: chest Comments [facility], [place] NAME: NADIA SAL [facility] REC#: [id number] PT STATUS: REG ER : 1945 PHYSICIAN: MAN BARKER APRN ADMIT DATE: 09/14/20/ER Draft Date of Exam:09/14/20 CHEST 1 VIEW, AP/PA ONLY INDICATION: Chest pain. EXAMINATION: Portable erect AP chest at 8:46 p.m. FINDINGS: The heart size is at the upper limits of normal. The heart does seem somewhat more prominent than noted on the prior exam of 04/11/2008. As seen on the prior exam, there are a few crowded bronchovascular markings in the right infrahilar region due to the elevation of the right hemidiaphragm. The lungs seem generally clear. There is no sign of failure, pneumonia or a pleural effusion. The mediastinum is not widened. The osseous structures are intact. Surgical clips are again seen overlying the neck. IMPRESSION: There is no evidence for active disease. Dictated on workstation # [id number] Dict: 09/14/202101 Trans: 09/14/202107 [facility] [id number] Interpreted by: ADRI BORDEN MD Electronically signed by: Reviewed: Reviewed by Me Diagonstic Imaging: CT Plain Films/CT/US/NM/MRI: head Comments [facility] [place] NAME: NADIA SAL [facility] REC#: [id number] PT STATUS: REG ER : 1945 PHYSICIAN: MAN BARKER APRN ADMIT DATE: 09/14/20/ER Draft Date of Exam:09/14/20 CT HEAD WO PROCEDURE: CT head without contrast. TECHNIQUE: Multiple contiguous axial images were obtained through the brain without the use of intravenous contrast. Auto Exposure Controls were utilized during the CT exam to meet ALARA standards for radiation dose reduction. INDICATION: Headache. FINDINGS: There is no mass, shift of the midline or hemorrhage to suggest an acute intracranial abnormality. The ventricles are not abnormally dilated and stable in size when compared to the prior exam of 10/20/2016. Bilateral basal ganglia calcifications are again seen. The senescent changes noted on the prior study are also again visualized and stable. The bone windows show no sign of a fracture or for a destructive lesion. The orbits are symmetrical and within normal limits. The sinuses are generally clear. IMPRESSION: 1. There is no evidence for an acute intracranial abnormality. 2. If clinical concern regarding an underlying abnormality persists, then MRI would be recommended for further study. Dictated on workstation # [id number] Dict: 09/14/202102 Trans: 09/14/202117 [facility] [id number] Interpreted by: ADRI BORDEN MD Electronically signed by: Reviewed: Reviewed by Me (HUGO GUNDERSON) Consults Consults : Consulting Physician: JARRED BRANCH OD Consults Notes After discussing the case with optometry they state that this is classic for an ocular migraine and recommend symptomatic management and follow-up tomorrow morning in the office for a good dilated eye exam. Return precautions. (HUGO GUNDERSON) Departure Impression Primary Impression: Ocular migraine Disposition: 01 HOME, SELF-CARE Condition: Stable Departure-Patient Inst. Decision time for Depature: 22:21 (HUGO GUNDERSON) Referrals: JARRED BRANCH OD, WILLIAM J DO (PCP/Family) Primary Care Physician Patient Instructions: Migraines (DC) Add. Discharge Instructions: Expect a phone call in the morning from Dr. Branch's clinic to be seen for an eye exam first thing in the morning. If you have new or worsening symptoms you need to return to the ER for further evaluation. Tylenol 1000 mg every 8 hours as necessary for pain/headache. Phenergan 1 tablet every 6 hours as necessary for nausea or headache. Take with the Benadryl to prevent restlessness. Scripts Promethazine HCl (Promethazine Tablet) 25 Mg Tablet 25 MG PO Q6H PRN for NAUSEA/VOMITING for 3 Days, #12 TAB 0 Refills Prov: HUGO GUNDERSON 09/14/20 MAN BARKER APRN September 14, 2020 20:03 HUGO GUNDERSON September 14, 2020 21:21
[2020-09-14 20:33] LABS: BASOPHILS # (AUTO) 0.1 10^3/uL (0.0-0.1); BASOPHILS % (AUTO) 1 % (0-10); EOSINOPHILS # (AUTO) 0.1 10^3/uL (0.0-0.3); EOSINOPHILS % (AUTO) 2 % (0-10); HEMATOCRIT 43 % (35-52); HEMOGLOBIN 14.3 g/dL (11.5-16.0); LYMPHOCYTES # (AUTO) 0.8 10^3/uL (1.0-4.0); LYMPHOCYTES % (AUTO) 18 % (12-44); MEAN CORPUSCULAR HEMOGLOBIN 28 pg (25-34); MEAN CORPUSCULAR HGB CONC 33 g/dL (32-36); MEAN CORPUSCULAR VOLUME 86 fL (80-99); MEAN PLATELET VOLUME 9.2 fL (9.0-12.2); MONOCYTES # (AUTO) 0.5 10^3/uL (0.0-1.0); MONOCYTES % (AUTO) 11 % (0-12); NEUTROPHILS # (AUTO) 2.8 10^3/uL (1.8-7.8); NEUTROPHILS % (AUTO) 67 % (42-75); PLATELET COUNT 261 10^3/uL (130-400); WHITE BLOOD COUNT 4.1 10^3/uL (4.3-11.0)
[2020-09-14 20:39] LABS: INR 1.1 (0.8-1.4); PROTHROMBIN TIME PATIENT 14.1 SEC (12.2-14.7)
[2020-09-14 20:50] LABS: ALBUMIN 4.4 GM/DL (3.2-4.5); POTASSIUM 3.7 MMOL/L (3.6-5.0)
[2020-09-14 20:51] LABS: CALCIUM 9.9 MG/DL (8.5-10.1)
[2020-09-14 20:52] LABS: TOTAL PROTEIN 7.7 GM/DL (6.4-8.2)
[2020-09-14 20:54] LABS: BILIRUBIN,TOTAL 0.6 MG/DL (0.1-1.0)
[2020-09-14 20:56] LABS: CREATININE SERUM 0.98 MG/DL (0.60-1.30)
[2020-09-14 21:00] LABS: MAGNESIUM 2.1 MG/DL (1.6-2.4)
--- NOTE | 2020-09-14 21:09 | Diagnostic Imaging Report ---
INDICATION: Chest pain. EXAMINATION: Portable erect AP chest at 8:46 p.m. FINDINGS: The heart size is at the upper limits of normal. The heart does seem somewhat more prominent than noted on the prior exam of 04/11/2008. As seen on the prior exam, there are a few crowded bronchovascular markings in the right infrahilar region due to the elevation of the right hemidiaphragm. The lungs seem generally clear. There is no sign of failure, pneumonia or a pleural effusion. The mediastinum is not widened. The osseous structures are intact. Surgical clips are again seen overlying the neck. IMPRESSION: There is no evidence for active disease. Dictated by: Dictated on workstation # [id number]
--- NOTE | 2020-09-14 21:19 | Diagnostic Imaging Report ---
PROCEDURE: CT head without contrast. TECHNIQUE: Multiple contiguous axial images were obtained through the brain without the use of intravenous contrast. Auto Exposure Controls were utilized during the CT exam to meet ALARA standards for radiation dose reduction. INDICATION: Headache. FINDINGS: There is no mass, shift of the midline or hemorrhage to suggest an acute intracranial abnormality. The ventricles are not abnormally dilated and stable in size when compared to the prior exam of 10/20/2016. Bilateral basal ganglia calcifications are again seen. The senescent changes noted on the prior study are also again visualized and stable. The bone windows show no sign of a fracture or for a destructive lesion. The orbits are symmetrical and within normal limits. The sinuses are generally clear. IMPRESSION: 1. There is no evidence for an acute intracranial abnormality. 2. If clinical concern regarding an underlying abnormality persists, then MRI would be recommended for further study. Dictated by: Dictated on workstation # [id number]
[2020-09-14] MEDS ORDERED: LABETALOL HCL 20 MG/4 ML VIAL IV ONE (21:45)
[2020-09-14] MEDS ORDERED: ACETAMINOPHEN 500 MG TAB (TYLENOL) PO ONE (22:30)
[2020-09-14] MEDS ORDERED: PROM25TA14 PO (22:50)
[2020-09-14] MEDS ORDERED: diphenhydrAMINE 25 MG TAB (BENADRYL) PO ONE (23:00)
[2020-09-14] MEDS ORDERED: KETOROLAC 30 MG/ML VIAL IVP ONE (23:00)
[2020-09-14] MEDS ORDERED: PROMETHAZINE INJ 25 MG/ML (PHENERGAN) AMP IVP ONE (23:00)
[2020-09-14 23:55] VITALS: BP 149/78
== END 2020-09-14 23:55 | disposition home or self-care (01) ==
LOC: EDUNIT# 19:36 → ER 19:38
DX: G43.B0 Ophthalmoplegic migraine, not intractable (principal); I10 Essential (primary) hypertension; K21.9 Gastro-esophageal reflux disease without esophagitis; Z79.899 Other long term (current) drug therapy
CPT/HCPCS: 36415; 70450; 71045; 80053; 83735; 83874; 83880; 84484; 85025; 85610; 85730; 93005; 93041

== ENCOUNTER → 2020-09-22 | Outpatient (CLI) | payer MEDICARE, OTHER ==
[~2020-09-22] MED LIST changes: +PROM25TA14 PO
[2020-09-22 12:18] LABS: FREE T4 (FREE THYROXINE) 1.15 NG/DL (0.70-1.48)
== END ==
LOC: LAB 11:15
PROVIDERS: ATTEND Otolaryngology
DX: C73 Malignant neoplasm of thyroid gland (principal)
CPT/HCPCS: 36415; 84439; 84443

== ENCOUNTER → 2020-10-19 | Outpatient (CLI) | payer MEDICARE, OTHER ==
[2020-10-19 13:08] LABS: CREATININE SERUM 1.01 MG/DL (0.60-1.30)
[2020-10-19 13:31] LABS: FREE T4 (FREE THYROXINE) 1.48 NG/DL (0.70-1.48)
== END ==
LOC: LAB 12:27
DX: C73 Malignant neoplasm of thyroid gland (principal)
CPT/HCPCS: 36415; 82565; 84439; 84443; 84520

== ENCOUNTER → 2020-11-16 | Outpatient (CLI) | payer MEDICARE, OTHER ==
--- NOTE | 2020-11-16 13:28 | Diagnostic Imaging Report ---
INDICATION: Digital 2-D and 3-D screening mammograms with CAD performed. COMPARED: 11/10/2019 FINDINGS: Scattered fibroglandular densities in the breast are present. There is no mass or architectural distortion, spiculated lesion or suspicious-appearing calcifications. IMPRESSION: Stable negative mammogram BI-RADS Category 1 ACR BI-RADS Category 1: Negative. Result letter will be mailed to the patient. Note: At least 10% of breast cancer is not imaged by mammography. Dictated by: Dictated on workstation # [id number]
== END ==
LOC: RAD 10:50
PROVIDERS: ATTEND Internal Medicine Hematology & Oncology
DX: Z12.31 Encounter for screening mammogram for malignant neoplasm of breast (principal)
CPT/HCPCS: 77063; 77067

== ENCOUNTER 2020-12-13 14:39 | Outpatient (RCR) | payer MEDICARE, OTHER ==
[2020-12-09 11:03] LABS: BASOPHILS # (AUTO) 0.1 10^3/uL (0.0-0.1); BASOPHILS % (AUTO) 2 % (0-10); EOSINOPHILS # (AUTO) 0.1 10^3/uL (0.0-0.3); EOSINOPHILS % (AUTO) 3 % (0-10); HEMATOCRIT 43 % (35-52); HEMOGLOBIN 13.6 g/dL (11.5-16.0); LYMPHOCYTES # (AUTO) 0.7 10^3/uL (1.0-4.0); LYMPHOCYTES % (AUTO) 18 % (12-44); MEAN CORPUSCULAR HEMOGLOBIN 28 pg (25-34); MEAN CORPUSCULAR HGB CONC 32 g/dL (32-36); MEAN CORPUSCULAR VOLUME 86 fL (80-99); MEAN PLATELET VOLUME 9.1 fL (9.0-12.2); MONOCYTES # (AUTO) 0.6 10^3/uL (0.0-1.0); MONOCYTES % (AUTO) 15 % (0-12); NEUTROPHILS # (AUTO) 2.5 10^3/uL (1.8-7.8); NEUTROPHILS % (AUTO) 62 % (42-75); PLATELET COUNT 250 10^3/uL (130-400); WHITE BLOOD COUNT 4.1 10^3/uL (4.3-11.0)
[2020-12-09 11:27] LABS: ALBUMIN 3.9 GM/DL (3.2-4.5); BILIRUBIN,TOTAL 0.6 MG/DL (0.1-1.0); CALCIUM 9.7 MG/DL (8.5-10.1); CREATININE SERUM 1.1 MG/DL (0.60-1.30); POTASSIUM 4.4 MMOL/L (3.6-5.0); TOTAL PROTEIN 6.7 GM/DL (6.4-8.2)
== END 2020-12-19 | disposition home or self-care (01) ==
LOC: ONC 14:39
PROVIDERS: ATTEND Internal Medicine Hematology & Oncology
DX: C73 Malignant neoplasm of thyroid gland (principal); C7A.012 Malignant carcinoid tumor of the ileum; C78.7 Secondary malignant neoplasm of liver and intrahepatic bile duct; C77.9 Secondary and unspecified malignant neoplasm of lymph node, unspecified; I12.9 Hypertensive chronic kidney disease with stage 1 through stage 4 chronic kidney disease, or unspecified chronic kidney disease; N18.30 Chronic kidney disease, stage 3 unspecified; E55.9 Vitamin D deficiency, unspecified; E78.5 Hyperlipidemia, unspecified; I25.10 Atherosclerotic heart disease of native coronary artery without angina pectoris; E89.0 Postprocedural hypothyroidism; Z90.89 Acquired absence of other organs; Z79.899 Other long term (current) drug therapy; Z90.49 Acquired absence of other specified parts of digestive tract; Z98.890 Other specified postprocedural states; Z92.3 Personal history of irradiation; Z79.890 Hormone replacement therapy
CPT/HCPCS: 80053; 82308; 82378; 83615; 84443; 85025; 99213

== ENCOUNTER → 2021-01-11 | Outpatient (CLI) | payer MEDICARE, OTHER ==
[~2021-01-11] MED LIST changes: +GADOBUTROL 7.5 MMOL/7.5 ML (GADAVIST) VIAL IV ONE
--- NOTE | 2021-01-11 14:15 | Diagnostic Imaging Report ---
PROCEDURE: MR imaging cervical spine with and without contrast. TECHNIQUE: Multiplanar and multisequence MRI of the cervical spine was performed with and without contrast. INDICATION: Neck pain. History of colon cancer. COMPARISON: Outside MRI cervical spine 10/18/2020. FINDINGS: Normal alignment. Vertebral body heights preserved. Normal bone marrow signal without abnormal enhancement. No abnormal signal or enhancement in the cervical spinal cord. Visualized paravertebral soft tissues are unremarkable. C2-C3: Normal. C3-C4: Uncovertebral and facet arthropathy result in moderate bilateral neural foraminal narrowing. Ligamentous hypertrophy and mild disc bulging results in mild spinal canal narrowing. C4-C5: Annular disc bulge and ligamentous hypertrophy result in moderate spinal canal stenosis. Uncovertebral joint and facet arthropathy also result in severe left and moderate right neural foraminal narrowing. C5-C6: Ligamentous hypertrophy results in mild spinal canal narrowing. Uncovertebral and facet arthropathy result in moderate bilateral neural foraminal narrowing. C6-C7: Mild left neural foraminal narrowing. No spinal canal narrowing. C7-T1: Normal. IMPRESSION: 1. Spondylotic changes result in moderate spinal canal stenosis at C4-C5. No abnormal signal or enhancement in the cervical spinal cord. 2. Multilevel high-grade neural foraminal narrowing detailed above. 3. No acute osseous findings or suspicious enhancement. Dictated by: Dictated on workstation # [id number]
== END ==
LOC: RAD 09:43
PROVIDERS: ATTEND Internal Medicine Hematology & Oncology
DX: M47.812 Spondylosis without myelopathy or radiculopathy, cervical region (principal); M50.321 Other cervical disc degeneration at C4-C5 level; M48.02 Spinal stenosis, cervical region; M24.28 Disorder of ligament, vertebrae
CPT/HCPCS: 72156

== ENCOUNTER → 2021-03-08 | Outpatient (CLI) | payer MEDICARE, OTHER ==
[~2021-03-08] MED LIST changes: +CATHETER FLUSH 10 ML SYR IV PRN; -GADOBUTROL 7.5 MMOL/7.5 ML (GADAVIST) VIAL IV ONE; +HOLD METFORMIN - RECEIVED CONTRAST 20 ML VIAL IV SCH; +IOHEXOL 350 MG/ML 100 ML (OMNIPAQUE 350) VIAL IV ONE; +NS 100 ML (IVPB) BAG IV ONE
--- NOTE | 2021-03-08 13:57 | Diagnostic Imaging Report ---
EXAMINATION: CT neck, chest, and abdomen with intravenous contrast. TECHNIQUE: Multiple contiguous axial images were obtained through the neck, chest, and abdomen after the uneventful administration of intravenous contrast. All CT scans use one or more of the following dose optimizing techniques: automated exposure control, MA and/or KvP adjustment based on patient size and exam type or iterative reconstruction. HISTORY: MALIGNANT NEOPLASM COMPARISON: CT neck chest and abdomen 03/07/2020 FINDINGS: Neck CT: No pathologically enlarged lymphadenopathy. Stable prominent bilateral cervical lymph nodes. Vessels of the neck demonstrate normal course and caliber. Fascial planes are preserved and the deep spaces of the neck are normal. The visualized airway is widely patent. The visualized skull base is unremarkable. Orbits are unremarkable as visualized. Degenerative changes of the spine without suspicious osseous lesion or compression fracture. Chest CT: Thyroid: The thyroid gland is surgically absent. Increasing size of a soft tissue nodule within the right thyroidectomy bed measuring 1.1 x 1.1 cm (previously 1.0 x 0.9 cm). (Series 11 image 73). Mediastinum: Heart size is normal without significant pericardial effusion. Calcifications of the aorta and coronary vessels. Thoracic aorta is normal in caliber. No suspicious lymphadenopathy. Lungs and airways: The lungs are clear without consolidation, pleural effusion, or pneumothorax. No suspicious pulmonary lesion. The airways are normal. Abdomen and Pelvis CT: Solid organs: The liver is normal without focal lesion. The gallbladder is surgically absent. There is no biliary ductal dilation. Pancreas is normal. Spleen is normal. Adrenal glands are normal. The kidneys are normal without hydronephrosis. Bowel: Surgical changes of the bowel without obstruction. Peritoneum: There is no intraperitoneal free fluid or free air. No suspicious lymphadenopathy. Vasculature: Calcification of the aorta without aneurysm. Musculoskeletal: No suspicious osseous lesion or compression fracture. IMPRESSION: 1. Increasing size of a soft tissue nodule in the right thyroidectomy bed. Consider ultrasound evaluation and possible biopsy to exclude recurrent tumor. 2. No other findings of metastatic disease within the neck, chest, or abdomen. Dictated by: Dictated on workstation # [id number]
== END ==
LOC: RAD 09:51
PROVIDERS: ATTEND Internal Medicine Hematology & Oncology
DX: C73 Malignant neoplasm of thyroid gland (principal); D3A.00 Benign carcinoid tumor of unspecified site; C78.7 Secondary malignant neoplasm of liver and intrahepatic bile duct; Z90.89 Acquired absence of other organs
CPT/HCPCS: 70491; 71260; 74160

== ENCOUNTER 2021-03-09 10:48 | Outpatient (RCR) | payer MEDICARE, OTHER ==
[2021-03-06 08:40] LABS: BASOPHILS # (AUTO) 0.1 10^3/uL (0.0-0.1); BASOPHILS % (AUTO) 2 % (0-10); EOSINOPHILS # (AUTO) 0.1 10^3/uL (0.0-0.3); EOSINOPHILS % (AUTO) 3 % (0-10); HEMATOCRIT 41 % (35-52); HEMOGLOBIN 13.2 g/dL (11.5-16.0); LYMPHOCYTES # (AUTO) 0.9 10^3/uL (1.0-4.0); LYMPHOCYTES % (AUTO) 22 % (12-44); MEAN CORPUSCULAR HEMOGLOBIN 28 pg (25-34); MEAN CORPUSCULAR HGB CONC 32 g/dL (32-36); MEAN CORPUSCULAR VOLUME 86 fL (80-99); MEAN PLATELET VOLUME 9.2 fL (9.0-12.2); MONOCYTES # (AUTO) 0.5 10^3/uL (0.0-1.0); MONOCYTES % (AUTO) 12 % (0-12); NEUTROPHILS # (AUTO) 2.4 10^3/uL (1.8-7.8); NEUTROPHILS % (AUTO) 61 % (42-75); PLATELET COUNT 233 10^3/uL (130-400); WHITE BLOOD COUNT 3.9 10^3/uL (4.3-11.0)
[2021-03-06 09:19] LABS: ALBUMIN 4.1 GM/DL (3.2-4.5); BILIRUBIN,TOTAL 0.6 MG/DL (0.1-1.0); CREATININE SERUM 1.25 MG/DL (0.60-1.30); POTASSIUM 3.9 MMOL/L (3.6-5.0); TOTAL PROTEIN 7.1 GM/DL (6.4-8.2)
[~2021-03-09 10:48] MED LIST changes: -CATHETER FLUSH 10 ML SYR IV PRN; -HOLD METFORMIN - RECEIVED CONTRAST 20 ML VIAL IV SCH; -IOHEXOL 350 MG/ML 100 ML (OMNIPAQUE 350) VIAL IV ONE; +MONT-40 PO; -MONT10TA32 PO; -NS 100 ML (IVPB) BAG IV ONE
== END 2021-04-24 | disposition home or self-care (01) ==
LOC: ONC 10:48
PROVIDERS: ATTEND Internal Medicine Hematology & Oncology
DX: E03.9 Hypothyroidism, unspecified (principal); I10 Essential (primary) hypertension; E78.5 Hyperlipidemia, unspecified; Z90.89 Acquired absence of other organs; Z79.899 Other long term (current) drug therapy; Z90.49 Acquired absence of other specified parts of digestive tract; Z98.890 Other specified postprocedural states; Z92.3 Personal history of irradiation
CPT/HCPCS: 80053; 82308; 82378; 83615; 84443; 85025; 86316; 99213

== ENCOUNTER 2022-03-27 12:51 | Outpatient (RCR) | payer MEDICARE, OTHER ==
[~2022-03-27 12:51] MED LIST changes: -FENO134C PO; +FENO134C21 PO
== END 2022-03-28 | disposition home or self-care (01) ==
PROVIDERS: ATTEND Internal Medicine Hematology & Oncology
DX: R53.1 Weakness (principal); R26.89 Other abnormalities of gait and mobility; I10 Essential (primary) hypertension

== ENCOUNTER 2022-04-26 12:55 | Outpatient (RCR) | payer MEDICARE, OTHER | END 2022-04-28 | disposition home or self-care (01) | PROVIDERS: ATTEND Internal Medicine Hematology & Oncology | DX: R53.81 Other malaise (principal); R26.89 Other abnormalities of gait and mobility; I10 Essential (primary) hypertension ==

== ENCOUNTER 2022-05-22 13:48 | Outpatient (RCR) | payer MEDICARE, OTHER | END 2022-05-29 | disposition home or self-care (01) | PROVIDERS: ATTEND Internal Medicine Hematology & Oncology | DX: R53.81 Other malaise (principal); R26.89 Other abnormalities of gait and mobility; I10 Essential (primary) hypertension ==

== ENCOUNTER 2022-09-02 10:35 | Emergency (ER) | payer MEDICARE, OTHER ==
[~2022-09-02] VITALS: Ht 160 cm; Wt 69.3 kg
[2022-09-02 10:54] LABS: BASOPHILS # (AUTO) 0.1 10^3/uL (0.0-0.1); BASOPHILS % (AUTO) 2 % (0-10); EOSINOPHILS # (AUTO) 0.2 10^3/uL (0.0-0.3); EOSINOPHILS % (AUTO) 4 % (0-10); HEMATOCRIT 43 % (35-52); LYMPHOCYTES # (AUTO) 0.8 10^3/uL (1.0-4.0); LYMPHOCYTES % (AUTO) 21 % (12-44); MEAN CORPUSCULAR HEMOGLOBIN 28 pg (25-34); MEAN CORPUSCULAR HGB CONC 33 g/dL (32-36); MEAN CORPUSCULAR VOLUME 85 fL (80-99); MEAN PLATELET VOLUME 8.9 fL (9.0-12.2); MONOCYTES # (AUTO) 0.5 10^3/uL (0.0-1.0); MONOCYTES % (AUTO) 12 % (0-12); NEUTROPHILS # (AUTO) 2.4 10^3/uL (1.8-7.8); NEUTROPHILS % (AUTO) 61 % (42-75); PLATELET COUNT 231 10^3/uL (130-400); WHITE BLOOD COUNT 3.9 10^3/uL (4.3-11.0)
[2022-09-02 11:06] LABS: POTASSIUM 4.1 MMOL/L (3.6-5.0)
[2022-09-02 11:07] LABS: CALCIUM 9.2 MG/DL (8.5-10.1)
--- NOTE | 2022-09-02 11:08 | ED General ---
General Chief Complaint: Dizziness/Syncope Stated Complaint: DIZZINESS/WEAKNESS Nursing Triage Note: PT PRESENTS TO ED VIA POV FROM HOME WITH COMPLAINTS OF DIZZINESS, GEN WEAKNESS, LIGHTHEADEDNESS, NAUSEA STARTING WHEN SHE WOKE UP THIS AM. PT ALSO REPORTS INCREASED SOA SINCE YESTERDAY. PT DENIES CP, COUGH, OR FEVER. Source of Information: Patient Exam Limitations: No Limitations History of Present Illness Date Seen by Provider: September 02, 2022 Time Seen by Provider: 10:45 Initial Comments This 77-year-old woman presents to the emergency room accompanied by her who drove her here with concerns of feeling weak, clammy, nauseated, and lightheaded. She has chronic shortness of air which is not changed. She denies urinary changes. She has chronic diarrhea without significant diarrhea today. She has history of thyroid cancer status post thyroidectomy. She is notably hypertensive on arrival. She has not taken her medications yet today. Her primary care provider is Dr. Cervantes. Her oncologist is Dr. Salazar. Allergies and Home Medications Allergies Coded Allergies: albuterol (Verified Allergy, Mild, HIVES, 01/26/20) Patient Home Medication List Home Medication List Reviewed: Yes Amlodipine Besylate (Amlodipine Besylate) 5 Mg Tablet, 5 MG PO DAILY, (Reported) Entered as Reported by: KALYANI PEARCE on 01/29/18 1501 Fenofibric Acid (Choline) (Fenofibric Acid) 135 Mg Capsule.dr, 135 MG PO DAILY, (Reported) Entered as Reported by: CAMERON GONZALES on 12/20/17 1514 Furosemide (Furosemide) 20 Mg Tablet, 20 MG PO DAILY, (Reported) Entered as Reported by: KALYANI PEARCE on 06/04/17 1527 Lansoprazole (Lansoprazole) 30 Mg Capsule., 30 MG PO DAILY, (Reported) Entered as Reported by: CAMERON GONZALES on 12/20/17 1514 Levothyroxine Sodium (Levothyroxine Sodium) 100 Mcg Tablet, 100 MCG PO DAILY, (Reported) Entered as Reported by: TIGRE EDDY on 01/26/20 1504 Losartan Potassium (Losartan Potassium) 50 Mg Tablet, 50 MG PO DAILY, (Reported) Entered as Reported by: KALYANI PEARCE on 06/04/17 1527 Metoprolol Succinate (Metoprolol Succinate) 25 Mg Tab.er.24h, 25 MG PO DAILY, (Reported) Entered as Reported by: TIGRE EDDY on 01/26/20 1504 Montelukast Sodium (Montelukast Sodium) 10 Mg Tablet, 10 MG PO DAILY, (Reported) Entered as Reported by: KALYANI PEARCE on 06/04/17 1527 Promethazine HCl (Promethazine Tablet) 25 Mg Tablet, 25 MG PO Q6H PRN for NAUSEA/VOMITING Prescribed by: HUGO GUNDERSON on 09/14/20 2250 Review of Systems Review of Systems Constitutional: see HPI EENTM: no symptoms reported Respiratory: see HPI Cardiovascular: see HPI Gastrointestinal: see HPI Genitourinary: no symptoms reported : No Musculoskeletal: no symptoms reported Skin: no symptoms reported Psychiatric/Neurological: No Symptoms Reported Hematologic/Lymphatic: See HPI Immunological/Allergic: see HPI Past Auwntvt-Mbqesj-Uozkhc Hx Patient Social History Tobacco Use?: No Substance use?: No Alcohol Use?: No Pt feels they are or have been: No Immunizations Up To Date Tetanus Booster (TDap): Unknown PED Vaccines UTD: No Seasonal Allergies Seasonal Allergies: Yes Past Medical History Surgery/Hospitalization HX: THYROID CA-METS TO COLON, LIVER. COLON RESECTION DUE TO CA, LIVER ABLATION. 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 Sexually Transmitted Disease: No HIV/AIDS: No Genitourinary: No Gastrointestinal: Yes (HX COLON CANCER) Gastroesophageal Reflux, Chronic Diarrhea Musculoskeletal: Yes Arthritis, Chronic Back Pain Endocrine: Yes (THYROIDECTOMY) Hypothyroidsim HEENT: Yes (CATARACT removed, lower dentures) Cancer: Yes Liver, Colon, Thyroid Did You Recieve Any Treatments: Yes What Type of Treatment Did You: Radiation, Surgical Intervention Psychosocial: No Integumentary: No Blood Disorders: No Adverse Reaction/Blood Tranf: No (N/A) Physical Exam Vital Signs Vital Signs - First Documented 09/02/22 10:47 Temp 35.7 Pulse 64 Resp 16 B/P (MAP) 207/100 (135) Pulse Ox 94 Capillary Refill : Less Than 3 Seconds Height, Weight, BMI Height: 5'2.50" Weight: 140lbs. 0.0oz. [id number]; 27.00 BMI Method:Stated General Appearance: No Apparent Distress, WD/WN HEENT: PERRL/EOMI, Normal ENT Inspection, Other (Oropharynx somewhat dry) Neck: Normal Inspection; No JVD Respiratory: Lungs Clear, Normal Breath Sounds, No Accessory Muscle Use Cardiovascular: Regular Rate, Rhythm, No Edema, No Murmur Gastrointestinal: Normal Bowel Sounds, Non Tender, Soft Extremity: Normal Inspection, Non Tender, No Pedal Edema Neurologic/Psychiatric: Alert, Oriented x3, No Motor/Sensory Deficits, Normal Mood/Affect Skin: Normal Color, Warm/Dry Progress/Results/Core Measures Suspected Sepsis SIRS Temperature: Pulse: 64 Respiratory Rate: 16 Laboratory Tests 09/02/22 10:47: White Blood Count 3.9L Blood Pressure 207 /100 Mean: 135 Laboratory Tests 09/02/22 10:47: Creatinine 1.36H, Platelet Count 231, Total Bilirubin 0.5 Results/Orders Lab Results Laboratory Tests Test 09/02/22 10:47 09/02/22 11:25 09/02/22 12:57 Range/Units White Blood Count 3.9 L 4.3-11.0 10^3/uL Red Blood Count 4.99 3.80-5.11 10^6/uL Hemoglobin 14.0 11.5-16.0 g/dL Hematocrit 43 35-52 % Mean Corpuscular Volume 85 80-99 fL Mean Corpuscular Hemoglobin 28 25-34 pg Mean Corpuscular Hemoglobin Concent 33 32-36 g/dL Red Cell Distribution Width 13.3 10.0-14.5 % Platelet Count 231 130-400 10^3/uL Mean Platelet Volume 8.9 L 9.0-12.2 fL Immature Granulocyte % (Auto) 1 % Neutrophils (%) (Auto) 61 42-75 % Lymphocytes (%) (Auto) 21 12-44 % Monocytes (%) (Auto) 12 0-12 % Eosinophils (%) (Auto) 4 0-10 % Basophils (%) (Auto) 2 0-10 % Neutrophils # (Auto) 2.4 1.8-7.8 10^3/uL Lymphocytes # (Auto) 0.8 L 1.0-4.0 10^3/uL Monocytes # (Auto) 0.5 0.0-1.0 10^3/uL Eosinophils # (Auto) 0.2 0.0-0.3 10^3/uL Basophils # (Auto) 0.1 0.0-0.1 10^3/uL Immature Granulocyte # (Auto) 0.0 0.0-0.1 10^3/uL Sodium Level 141 135-145 MMOL/L Potassium Level 4.1 3.6-5.0 MMOL/L Chloride Level 105 98-107 MMOL/L Carbon Dioxide Level 25 21-32 MMOL/L Anion Gap 11 5-14 MMOL/L Blood Urea Nitrogen 20 H 7-18 MG/DL Creatinine 1.36 H 0.60-1.30 MG/DL Estimat Glomerular Filtration Rate 40 BUN/Creatinine Ratio 15 Glucose Level 116 H 70-105 MG/DL Calcium Level 9.2 8.5-10.1 MG/DL Corrected Calcium 9.2 8.5-10.1 MG/DL Magnesium Level 2.2 1.6-2.4 MG/DL Total Bilirubin 0.5 0.1-1.0 MG/DL Aspartate Amino Transf (AST/SGOT) 16 5-34 U/L Alanine Aminotransferase (ALT/SGPT) 8 0-55 U/L Alkaline Phosphatase 66 40-136 U/L Troponin I < 0.028 <0.028 NG/ML C-Reactive Protein High Sensitivity 0.12 0.00-0.50 MG/DL B-Type Natriuretic Peptide 122.4 H <100.0 PG/ML Total Protein 7.2 6.4-8.2 GM/DL Albumin 4.0 3.2-4.5 GM/DL Thyroid Stimulating Hormone (TSH) 7.68 H 0.35-4.94 UIU/ML Free Thyroxine 1.04 0.70-1.48 NG/DL Influenza Type A (RT-PCR) Not Detected Not Detecte Influenza Type B (RT-PCR) Not Detected Not Detecte SARS-CoV-2 RNA (RT-PCR) Not Detected Not Detecte Urine Color YELLOW Urine Clarity CLEAR Urine pH 6.5 5-9 Urine Specific [place] 1.010 L 1.016-1.022 Urine Protein NEGATIVE NEGATIVE Urine Glucose (UA) NEGATIVE NEGATIVE Urine Ketones NEGATIVE NEGATIVE Urine Nitrite NEGATIVE NEGATIVE Urine Bilirubin NEGATIVE NEGATIVE Urine Urobilinogen 0.2 < = 1.0 MG/DL Urine Leukocyte Esterase NEGATIVE NEGATIVE Urine RBC (Auto) NEGATIVE NEGATIVE Urine RBC NONE /HPF Urine WBC RARE /HPF Urine Squamous Epithelial Cells 0-2 /HPF Urine Crystals NONE /LPF Urine Bacteria NEGATIVE /HPF Urine Casts NONE /LPF Urine Mucus NEGATIVE /LPF Urine Culture Indicated NO My Orders Orders - NATALIE CLANCY MD Cbc With Automated Diff (09/02/22 10:45) Comprehensive Metabolic Panel (09/02/22 10:45) Magnesium (09/02/22 10:45) Ua Culture If Indicated (09/02/22 10:45) Ed Iv/Invasive Line Start (09/02/22 10:45) Thyroid Stimulating Hormone (09/02/22 10:46) Free T4 (Free Thyroxine) (09/02/22 10:46) Amlodipine Tablet (Norvasc Tablet) (09/02/22 11:15) Ondansetron Injection (Zofran Injectio (09/02/22 11:15) Bnp [place] (09/02/22 11:05) Hs C Reactive Protein (09/02/22 11:05) Chest 1 View, Ap/Pa Only (09/02/22 11:05) Troponin I [place] (09/02/22 11:05) Ekg Tracing (09/02/22 11:05) Monitor-Rhythm Ecg Trace Only (09/02/22 11:05) Covid 19 Inhouse Test (09/02/22 11:07) Influenza A And B By Pcr (09/02/22 11:07) Ns Iv 500 Ml (Sodium Chloride 0.9%) (09/02/22 12:45) Medications Given in ED Current Medications Medications Dose Ordered Sig/Juvenal Route Start Time Stop Time Status Last Admin Dose Admin Amlodipine Besylate 5 mg ONCE ONCE PO 09/02/22 11:15 09/02/22 11:16 DC 09/02/22 11:14 5 MG Ondansetron HCl 4 mg ONCE ONCE IVP 09/02/22 11:15 09/02/22 11:16 DC 09/02/22 11:14 4 MG Sodium Chloride 500 ml @ 0 mls/hr Q0M ONCE IV 09/02/22 12:45 09/02/22 12:46 DC 09/02/22 12:59 0 MLS/HR Vital Signs/I&O 5/7/23 5/7/23 10:47 14:22 Temp 35.7 Pulse 64 63 Resp 16 18 B/P (MAP) 207/100 (135) 160/78 Pulse Ox 94 98 Capillary Refill : Less Than 3 Seconds Blood Pressure Mean: 135 Progress Note : Progress Note Flu, and COVID swabs were negative. Labs were reviewed. CBC was relatively unremarkable except for mild leukopenia. CMP was remarkable for mildly elevated creatinine. TSH was mildly elevated but free T4 was normal. BNP was essentially normal. UA was unremarkable. Chest x-ray and EKG were also unremarkable. EKG was interpreted by me as sinus rhythm with no ischemic changes. Patient had not taken her morning medications. Amlodipine 5 mg orally was administered which did have a notable effect on reducing her blood pressure. She also received a 500 mL normal saline bolus as she was thought to be hypovolemic after review of her creatinine. She was feeling improved after these interventions. She was discharged in stable condition. Patient has had chronic issues with swelling in the throat and swallowing since treating thyroid cancer. This has been a bit more notable in recent days. She was advised to notify Dr. Salazar of this issue promptly tomorrow. She reports a CT was obtained to evaluate this issue within the past 2 months. ECG Initial ECG Impression Date: September 02, 2022 Initial ECG Impression Time: 11:20 Initial ECG Rate: 65 Initial ECG Rhythm: Normal Sinus Comment Sinus rhythm with no ST elevation or depression. First-degree AV block with MT interval 255 ms. No axis deviation. Diagnostic Imaging Diagonstic Imaging: Xray Plain Films/CT/US/NM/MRI: chest Comments NAME: NADIA SAL [facility] [employer] REC#: [id number] PT STATUS: REG ER : 1945 PHYSICIAN: NATALIE CLANCY MD ADMIT DATE: 09/02/22/ER Signed Date of Exam:09/02/22 CHEST 1 VIEW, AP/PA ONLY INDICATION: Shortness of air, hypoxia COMPARISON: 09/14/2020 TECHNIQUE: Single radiograph of the chest dated 09/02/2022. FINDINGS: The cardiac silhouette is within normal limits in size. No significant pulmonary vascular congestion. Chronic elevation right hemidiaphragm. Surgical clips are again seen overlying the neck and upper chest bilaterally. The lungs are clear of focal pulmonary opacity. No pleural effusion. No pneumothorax. No acute osseous abnormality. IMPRESSION: Similar-appearing examination without acute cardiopulmonary abnormality. Additional postsurgical and chronic findings as above. Dictated by: Dictated on workstation # [id number] Dict: 09/02/22 1147 Trans: 09/02/22 1150 CVB [id number] Interpreted by: LORE MCGOVERN MD Electronically signed by: LOER MCGOVERN MD 09/02/22 1150 Departure Impression Primary Impression: Generalized weakness Additional Impressions: Lightheadedness Hypertension Qualified Codes: I10 - Essential (primary) hypertension History of thyroid cancer Disposition: HOME, SELF-CARE Condition: Improved Departure-Patient Inst. Decision time for Depature: 13:59 Referrals: JOSSELYN CERVANTES DO (PCP/Family) Primary Care Physician Patient Instructions: High Blood Pressure ED Add. Discharge Instructions: Follow-up with Dr. Cervantes as soon as possible for another blood pressure check and evaluation of your medications. You may need to have your diuretic doses adjusted if you are not able to drink enough liquids. Please discuss your blood pressure and your diuretic medications with Dr. Cervantes. Drink plenty of clear liquids to stay well-hydrated. Please inform Dr. Salazar of the sensation you have in your throat with swallowing. Resume your medications as previously prescribed. Return to the emergency room if you have worsening symptoms. All discharge instructions reviewed with patient and/or family. Voiced understanding. Copy Copies To 1: LROE SALAZAR Copies To 2: JOSSELYN CERVANTES JOSHUA T MD September 02, 2022 11:08
[2022-09-02 11:09] LABS: TOTAL PROTEIN 7.2 GM/DL (6.4-8.2)
[2022-09-02 11:10] LABS: BILIRUBIN,TOTAL 0.5 MG/DL (0.1-1.0)
[2022-09-02 11:12] LABS: CREATININE SERUM 1.36 MG/DL (0.60-1.30)
[2022-09-02 11:15] LABS: MAGNESIUM 2.2 MG/DL (1.6-2.4)
[2022-09-02] MEDS ORDERED: ONDANSETRON 4 MG/2 ML (SDV) Z0FRAN IVP ONE (11:15)
[2022-09-02] MEDS ORDERED: amLODIPine 5 MG (NORVASC) TAB PO ONE (11:15)
[2022-09-02 11:36] LABS: FREE T4 (FREE THYROXINE) 1.04 NG/DL (0.70-1.48)
--- NOTE | 2022-09-02 11:49 | Diagnostic Imaging Report ---
INDICATION: Shortness of air, hypoxia COMPARISON: 09/14/2020 TECHNIQUE: Single radiograph of the chest dated 09/02/2022. FINDINGS: The cardiac silhouette is within normal limits in size. No significant pulmonary vascular congestion. Chronic elevation right hemidiaphragm. Surgical clips are again seen overlying the neck and upper chest bilaterally. The lungs are clear of focal pulmonary opacity. No pleural effusion. No pneumothorax. No acute osseous abnormality. IMPRESSION: Similar-appearing examination without acute cardiopulmonary abnormality. Additional postsurgical and chronic findings as above. Dictated by: Dictated on workstation # [id number]
[2022-09-02] MEDS ORDERED: NS IV 500 ML 500 ML IV ONE (12:45)
[2022-09-02 13:05] LABS: BILIRUBIN,URINE NEGATIVE (NEGATIVE); CLARITY,URINE CLEAR; COLOR,URINE YELLOW; GLUCOSE, URINE (UA) NEGATIVE (NEGATIVE); KETONES,URINE NEGATIVE (NEGATIVE); LEUKOCYTE ESTERASE ,URINE NEGATIVE (NEGATIVE); NITRITE,URINE NEGATIVE (NEGATIVE); PH,URINE 6.5 (5-9); PROTEIN,URINE NEGATIVE (NEGATIVE)
[2022-09-02 13:11] LABS: BACTERIA,URINE NEGATIVE /HPF; SQUAMOUS EPITHELIAL CELL,UR 0-2 /HPF; WBC,URINE RARE /HPF
[2022-09-02 14:22] VITALS: BP 160/78
== END 2022-09-02 14:22 | disposition home or self-care (01) ==
LOC: EDUNIT# 10:35 → ER 10:38
DX: I10 Essential (primary) hypertension (principal); R53.1 Weakness; D72.819 Decreased white blood cell count, unspecified; R79.89 Other specified abnormal findings of blood chemistry; Z85.850 Personal history of malignant neoplasm of thyroid; Z90.89 Acquired absence of other organs; Z20.822 Contact with and (suspected) exposure to COVID-19
CPT/HCPCS: 36415; 71045; 80053; 81000; 83735; 83880; 84439; 84443; 84484; 85025; 86141; 87636; 93005; 93041

== ENCOUNTER 2023-04-03 05:38 | Outpatient (CLI) | payer MEDICARE, OTHER ==
[~2023-04-03] VITALS: Ht 165.1 cm; Wt 65.8 kg
[2023-04-05] MEDS ORDERED: NAPR-1070 PO (11:33)
[2023-04-05] MEDS ORDERED: LOSA100T58 PO (11:33)
[2023-04-05] MEDS ORDERED: MTP100TCR PO (11:33)
== END 2023-04-05 11:34 | disposition home or self-care (01) ==
LOC: PREOP 05:38
PROVIDERS: ATTEND Surgery
DX: Z01.818 Encounter for other preprocedural examination (principal)